=== PATIENT | male | born 1935 | race Caucasian/White ===

== ENCOUNTER 2020-11-06 10:00 | Outpatient (RCR) | payer MEDICARE, SELFPAY ==
[2016-03-15 18:31] VITALS: BMI 22.0
== END 2020-11-06 23:59 ==
LOC: IMMUN 10:00
PROVIDERS: PCP Family Medicine; Visit Provider Family Medicine
DX: Z23 Encounter for immunization (principal)
CPT/HCPCS: 0011A; 0012A; 91301

== ENCOUNTER 2025-02-04 07:31 | Emergency (ER) | payer MEDICARE, SELFPAY ==
[2025-02-04 07:32] VITALS: BP 182/85; PULSE 71; RESP 16; TEMP 37; O2SAT 100; BMI 21.9
--- NOTE | 2025-02-04 07:54 | EX.ED.DYSGE1 ---
HPI History of Present Illness Chief Complaint: Wound Check Informant: patient Onset/Context/Timing Onset: Today Context: Gradual Onset Timing: Continuous Current Severity: Mild Maximum Severity: Mild Narrative Narrative: 89-year-old male history of CAD with stent and hypertension. He is on aspirin and Plavix. He was washing his face today accidentally scrubbed off some skin on the top of his nose and his right ear and began bleeding. No other complaints. This occurred about an hour ago. Bleeding was not stopping so he came in the emergency department. Prior similar symptoms: Yes Recent Illness/Hospitalization: No [facility] Medical History Cardiac LV ejection fraction 10-20% (09/11/24) Arteriosclerotic coronary artery disease Chronic neuropathic pain Spinal stenosis of lumbar region Former tobacco use Brain aneurysm Hypertension Home Medications ?Medication ?Instructions ?Recorded ?Last Taken ?Type Handicap Parking Placard #2 ea 10/22/24 Unknown Rx aspirin 81 mg tablet,delayed 81 mg PO BREAKFAST awaiting mail 12/05/24 Unknown Rx release order RX #30 tabs atorvastatin 40 mg tablet 40 mg PO QHS awaiting mail in RX 12/05/24 Unknown Rx #30 tabs carvedilol 3.125 mg tablet 3.125 mg PO BID awaiting mail in 12/05/24 Unknown Rx RX #60 tabs clopidogrel 75 mg tablet 75 mg PO DAILY awaiting mail order 12/05/24 Unknown Rx RX #30 tabs empagliflozin 10 mg tablet 10 mg PO DAILY awaiting mail order 12/05/24 Unknown Rx (Jardiance) RX #30 tabs furosemide 40 mg tablet 40 mg PO DAILY awaiting mail order 12/05/24 Unknown Rx RX #30 tabs losartan 25 mg tablet 25 mg PO DAILY awaiting mail order 12/05/24 Unknown Rx RX #30 tabs spironolactone 25 mg tablet 12.5 mg (1/2 x 25 mg) PO DAILY 12/05/24 Unknown Rx awaiting mail order RX #15 tabs Allergy/AdvReac Type Severity Reaction Status Date / Time hydrochlorothiazide (From AdvReac Other Verified 10/18/24 10:04 Zestoretic) lisinopril (From Zestoretic) AdvReac Other Verified 10/18/24 10:04 Family History Mother Cancer Father Cancer Surgical History Stented coronary artery (09/11/24) Hx of hemorrhoidectomy Social History household members: spouse Smoking Status: Former smoker how long ago did patient quit smoking: Patient smoked 2 ppd from teen until 30 y/o then quit. alcohol intake: never substance use type: does not use caffeine: No ROS ROS ED ROS Narrative Denies recent illness. Constitutional Constitutional ED: Denies chills or fever(s) Eyes Eyes: Denies blurry vision ENT ENT ED: Denies ear pain Cardiovascular Cardiovascular: Denies chest pain Respiratory/Chest Respiratory/Chest: Denies cough or dyspnea Gastrointestinal Gastrointestinal: Denies abdominal pain Genitourinary Genitourinary ED: Denies dysuria or hematuria Musculoskeletal Musculoskeletal: Denies arthralgias Integumentary Denies abscess Neurologic Neurologic: Denies headache(s) Psychiatric Psychiatric: Denies anxiety or depression Endocrine Endocrinology: Denies cold intolerance Hematologic/Lymphatic Hematologic/Lymphatic: Denies easy bruising Allergic/Immunologic Allergic/Immunologic ED: Denies mouth swelling EXAM Physical Exam Narrative Exam Narrative: 89-year-old male sitting upright in a chair. Vital signs are stable and afebrile. Accompanied by his daughter. He is in no acute distress. Oozing from the skin on the top of the nose and his right earlobe. Pupils round reactive light. Neck nontender no lymphadenopathy. Lungs are clear equal symmetrical. Heart regular rhythm rate about 70 no murmur. Chest wall ribs nontender. Abdomen soft nontender. Moving all 4 extremities. Nontender no edema. Neurologically is awake alert. Answering questions following commands. No focal motor deficits. Const Vital Signs: 02/04/25 07:32 Temperature 98.6 F Temperature Source Oral Pulse Rate 71 Respiratory Rate 16 Blood Pressure 182/85 H Blood Pressure Mean 117 Pulse Ox 100 Oxygen Delivery Method Room Air Positive well nourished and well developed; Negative for obese, cachectic, contractures or unkempt General Appearance ED: well developed and NAD; Negative for unkempt, cachectic, contractures, cyanotic, diaphoretic or pallor Nutritional Appearance: Negative for cachectic or obese HEENT Reports moist mucous membranes Negative for trauma or tenderness Eyes PERRL and EOMs intact bilaterally Neck no lymphadenopathy, supple and no JVD Chest Wall inspection of chest normal and palpation of chest normal Resp normal respiratory effort and clear to auscultation bilaterally Effort and Inspection: Negative for retractions Auscultation: Negative for rales, rhonchi or wheezes Cardio regular rate, regular rhythm, S1 normal heart sound, S2 normal heart sound and no murmurs GI normal to inspection, nondistended, normoactive bowel sounds, non-tender, non-distended and no masses Palpation: soft; Negative for tender, guarding or rebound tenderness present Back/Spine no CVA tenderness General Back: Negative for CVA tenderness Cervical Spine: Negative for cervical spine tenderness Thoracic Spine / Upper Back: Negative for thoracic spinal tenderness Extremity normal to inspection General Extremety ED: Negative for edema or tenderness General Extremity: Negative for edema Neuro CN's II-XII intact bilaterally Sensorium / Orientation: alert; Negative for orientation impaired Motor Exam: strength 5/5 throughout Psych Appearance: Negative for unkempt Skin no rashes or lesions noted, No no wounds and skin turgor normal Skin Narrative: Skin tear of the bridge of his nose. Oozing. Small wound right lower earlobe. Currently not bleeding. General Skin Exam: Negative for pallor Lesions: No lesion noted Rashes: No rashes noted MDM MDM MDM Narrative Medical decision making narrative: 89-year-old male has a wound on his nose and right ear lobe that were bleeding due to him being on Plavix and aspirin. Otherwise exam benign. I placed Dermabond on both wounds bleeding stopped. He was instructed on wound care. Discharge Plan Triage Chief Complaint: Wound Check ED Provider: Jovany Wellington Dx/Rx/DC Orders Clinical Impression: Skin tear Instructions: ED Skin Tear (Skin Avulsion) Prescriptions: No Action (DME) Handicap Parking Placard See Rx Instructions .Route .MEDSUPPLY Qty: 2 0RF Rx Instructions: As directed atorvastatin 40 mg tablet 40 mg PO QHS Qty: 30 0RF carvedilol 3.125 mg tablet 3.125 mg PO BID Qty: 60 0RF clopidogrel 75 mg tablet 75 mg PO DAILY Qty: 30 0RF Jardiance 10 mg tablet 10 mg PO DAILY Qty: 30 0RF furosemide 40 mg tablet 40 mg PO DAILY Qty: 30 0RF losartan 25 mg tablet 25 mg PO DAILY Qty: 30 0RF spironolactone 25 mg tablet 12.5 mg PO DAILY Qty: 15 0RF aspirin 81 mg tablet,delayed release (DR/EC) 81 mg PO BREAKFAST Qty: 30 0RF Primary Care Provider: Lesley Holt Referrals: Lesley Holt, [facility] [Primary Care Provider] - As Needed Activity Restrictions/Additional Instructions: General Washes area for at least a week. Because you might pull off the clot and the glue I will restart bleeding. If it begins bleeding again just hold direct pressure for 30 minutes if unable to stop return. Print Language: Grenadian Disposition Disposition: Home, Self Care
== END 2025-02-04 08:17 | disposition home or self-care (01) ==
PROVIDERS: Emergency Provider Emergency Medicine; PCP Nurse Practitioner Family; Visit Provider Emergency Medicine
DX: S31.119A Laceration without foreign body of abdominal wall, unspecified quadrant without penetration into peritoneal cavity, initial encounter (principal); I25.10 Atherosclerotic heart disease of native coronary artery without angina pectoris; Z79.02 Long term (current) use of antithrombotics/antiplatelets; I10 Essential (primary) hypertension; Z79.82 Long term (current) use of aspirin; Z87.891 Personal history of nicotine dependence; Z95.5 Presence of coronary angioplasty implant and graft; Z79.899 Other long term (current) drug therapy; X58.XXXA Exposure to other specified factors, initial encounter; Y93.89 Activity, other specified
CPT/HCPCS: 99282

== ENCOUNTER → 2025-03-08 | Outpatient (CLI) | payer MEDICARE, SELFPAY ==
[2025-03-08 12:35] LABS: AST(SGOT) 28 U/L (<=37); Alanine Aminotransfer ALT/SGPT 31 U/L (<=46); Albumin, Serum 4.1 g/dL (3.4-4.8); Alkaline Phosphatase 90 U/L (40-129); Bilirubin, Direct 0.46 mg/dL (0.00-0.30); Cholesterol 125 mg/dL (<=200); Globulin 3.2 g/dL (2.2-4.2); High Density Lipoprotein 51 mg/dL; Low Density Lipoprotein Calc. 57 mg/dL; Protein, Total 7.3 g/dL (5.9-8.4); Total Bilirubin 1.06 mg/dL (0.00-1.30); Triglycerides 89 mg/dL; Very Low Density Lipoprotein 18 mg/dL (5-40); cholesterol:hdl ratio screen 2.48
== END | disposition home or self-care (01) ==
LOC: LAB 09:26
PROVIDERS: PCP Nurse Practitioner Family; Referring Provider Nurse Practitioner Family; Visit Provider Nurse Practitioner Family
DX: E78.00 Pure hypercholesterolemia, unspecified (principal); Z95.5 Presence of coronary angioplasty implant and graft
CPT/HCPCS: 36415; 80061; 80076

== ENCOUNTER → 2025-04-05 | Outpatient (CLI) | payer MEDICARE, SELFPAY ==
[2025-04-05 15:55] LABS: Anion Gap 12 (5-15); BUN 20 mg/dL (4-19); BUN/Creat Ratio 17.6 RATIO (10-20); Calcium,Total 9.3 mg/dL (7.6-11.0); Chloride 104 mmol/L (98-108); Creatinine, Serum 1.11 mg/dL (0.70-1.20); EST Glomerular Filtration Rate 63 (>60); Glucose 136 mg/dL (70-99); Potassium 4.3 mmol/L (3.3-5.1); Sodium Level 139 mmol/L (133-145)
--- OUTSIDE RECORDS SUMMARY | 2025-04-05 18:30 | XMS RPT_ITS | CCD ---
Author Organization [facility] Care Team Providers Care [employer] Name Role Phone Healthcare, [facility] Primary Care Provider Unavailable Santi ROMEO, Dr. Yen Referring Provider Roof DISTRICT LEADER-C, Faheme Villavicencio Attending Provider [phone] Jonathon DISTRICT LEADER-C, Cornucopia Primary Care Provider Dr. Jovany Wellington MD Emergency Provider Jonathon DISTRICT LEADER-C, [place] Primary Care Provider [phone] Amish ROMEO, Dr. Manzo Attending Provider [phone] Roof DISTRICT LEADER-C, Faheem Villavicencio Attending Provider [phone] Roof [employer] LEADER-C, Faheem Villavicencio Referring Provider Giacomo, Yogi Attending Unavailable Farshad Hancock Primary Care Unavailable Giacomo, Yogi Admitting Unavailable Giacomo, Yogi Referring Unavailable Farshad Hancock Primary Care Unavailable Nagajothi, Nagapradee Consulting Unavailabl e Benjy Best Attending Unavailable Giacomo, Yogi Consulting Unavailable Benjy Best Consulting Unavailable Tavon Peterson Attending Unavailable Jonathon, Lesley Primary Care Unavailable Roof DISTRICT LEADERFaheem Referring Unavailable Roof DISTRICT LEADER, Faheem Villavicencio Attending Unavailable Jonathon, Lesley Primary Care Unavailable Jovany Wellington Attending Unavailable Jonathon, Lesley Primary Care Unavailable Jonathon, Lesley Attending Unavailable Giacomo, Yogi Consulting Unavailable Giacomo, Yogi Admitting Unavailable Giacomo, Yogi Referring Unavailable Benjy Best Attending Unavailable Bursdavid, Farshad Primary Care Unavailable Nagajothi, Nagapradee Consulting Unavailabl e Giacomo, Yogi Attending Unavailable Giacomo, Yogi Consulting Unavailable Giacomo, Yogi Admitting Unavailable Giacomo, Yogi Referring Unavailable Farshad Hancock Primary Care Unavailable Natalie Dubose Attending Unavailable Yogi Gooden Attending Unavailable Yogi Gooden Referring Unavailable Farshad Hancock Primary Care Unavailable Lesley Holt Primary Care Unavailable Tavon Peterson Attending Unavailable Lesley Holt Referring Unavailable Roof Faheem LANDAVERDE Attending Unavailable Farshad Hancock Referring Unavailable JonathonLesley gallegos Primary Care Unavailable Jonathon DISTRICT LEADER-C, Lesley Referring Provider Kristen ROMEO, Dr. Montes De Oca Attending Provider Unavailable Unavailable Unavailable Allergies Allergy Classification Reported Allergen(s) Allergy Type Date of Onset Reaction(s) Facility (4 sources) hydroCHLOROthiazide Drug Allergy [address] [facility] (5 sources) Lisinopril Drug Allergy [address] [facility] (1 source) hydroCHLOROthiazide Drug Allergy [address] [facility] (1 source) Lisinopril Drug Allergy [address] [facility] Medications Current Medications Medication Drug Class(es) Dates Sig (Normalized) Sig (Original) atenolol 50 mg oral tablet (5 sources) beta-Adrenergic Bc Start: 04-05-2014 take 1 tablet by mouth once daily atenolol (TENORMIN) 50 mg tablet Indications: Essential hypertension Take 1 tablet by mouth once daily. 90 tablet 3 11/19/2020 Active Start: 04-05-2014 End: 09-13-2024 Atenolol 50 MG tablet Discon tinued 1 {tbl} PO DAILY April 05, 2014 12:00am September 13, 2024 9:41am On Hold: not taking clopidogrel 75 mg oral tablet (13 sources) P2Y12 Platelet Inhibitor Start: 09-13-2024 End: 03-19-2025 take 1 tablet by mouth once daily Clopidogrel 75 mg tablet Active 75 mg PO DAILY 90 March 19, 2025 1:27pm finasteride 5 mg oral tablet (1 source) 5-alpha Reductase Inhibitor Start: 11-23-2019 take 1 tablet by mouth once daily finasteride (PROSCAR) 5 mg tablet Indications: Benign prostatic hyperplasia with urinary obstruction , Elevated prostate specific antigen (PSA) Take 1 tablet by mouth once daily. 90 tablet 3 11/23/2019 Active Handicap Parking Placard (6 sources) Start: 10-22-2024 Handicap Parki ng Placard Active 0 .Route .MEDSUPPLY 2 October 22, 2024 10:00am As directed Start: 10-22-2024 End: 10-22-2024 Handicap Parking Placard Dis continued 0 .Route .MEDSUPPLY 2 October 22, 2024 1:00am October 22, 2024 10:00am As directed Multivit-Min/Fa/Lycopene/Lut (Centrum Silver Tablet) 1 EACH Tablet (1 source) Start: 04-05-2014 take 1 tablet by mouth once daily Multivit-Min/Fa/Lycopene/Lut (Centrum Silver Tablet) 1 EACH Tablet Active 1 EACH PO DAILY April 05, 2014 4:13pm Qygaabsfbsohf-Pbcgtppf-Jlipn n (CENTRUM SILVER) Tab (1 source) Start: 03-15-2013 take 1 tablet by mouth once daily Ekldgirntzdsn-Ttsrqvge-Jlnice (CENTRUM SILVER) Tab Take 1 tablet by mouth once daily. 1 tablet 0 03/15/2013 Active tamsulosin hydrochloride 0.4 mg oral capsule (1 source) alpha-Ad renergic Bc Start: 03-19-2025 Tamsulosin 0.4 mg capsule Active mg PO March 19, 2025 12:00am Completed/Discontinued Medications Medication Drug Class(es) Dates Sig (Normalized) Sig (Original) acetaminophen 325 mg / HYDROcodone bitartrate 5 mg oral tablet (4 sources) Opioid Agonist Start: 6 End: 4 Hydrocodone-Acetam inophen 1 TABLET tablet Discontinued 1 - 2 {tbl} PO EVERY 4 HOURS NEEDED as needed for Pain March 15, 2016 12:00am September 13, 2024 9:42am amLODIPine 2.5 mg oral tablet (4 sources) Dihydropyridine Calcium Channel Bc Start: 4 End: 4 Amlodipine 2.5 MG tablet Discontinued 1 {tbl} PO DAILY April 05, 2014 12:00am September 13, 2024 9:41am On Hold: Ordered aspirin 81 mg delayed release oral tablet (9 sources) Platelet Aggregation Inhibitor, Nonsteroidal Anti-inflammatory Drug Start: 4 End: 5 take 1 tablet by mouth at breakfast Aspirin 81 mg tablet,delayed release (DR/EC) Discontinued 81 mg PO WITH BREAKFAST November 30, 2024 4:37pm December 05, 2024 4:48pm atorvastatin 40 mg oral tablet (12 sources) HMG-CoA Reductase Inhibitor Start: 4 End: 5 take 1 tablet by mouth at bedtime Atorvastatin 40 mg tablet Discontinued 40 mg PO AT BEDTIME November 30, 2024 4:38pm December 05, 2024 4:45pm carvedilol 3.125 mg oral tablet (12 sources) alpha-Adrenergic Bc, beta-Adrenergic Bc Start: 4 End: 5 take 1 tablet by mouth twice daily Carvedilol 3.125 mg tablet Discontinued 3.125 mg PO TWICE A DAY November 30, 2024 4:38pm December 05, 2024 4:45pm cholecalciferol 0.025 mg oral capsule (5 sources) Vitamin D Start: 9 End: 4 take 1 capsule by mouth once daily Cholecalciferol (Vitamin D3) (Vitamin D3) 1,000 UNIT capsule Discontinued 1000 U PO DAILY July 14, 2014 12:00am September 13, 2024 9:44am empagliflozin 10 mg oral tablet (14 sources) Sodium-Glucose Cotransporter 2 Inhibitor Start: 4 End: 5 take 1 tablet by mouth once daily Empagliflozin (Jardiance) 10 mg tablet Discontinued 10 mg PO DAILY December 05, 2024 4:45pm February 27, 2025 3:47pm furosemide 40 mg oral tablet (12 sources) Loop Diuretic Start: 4 End: 5 take 1 tablet by mouth once daily Furosemide 40 mg tablet Discontinued 40 mg PO DAILY December 05, 2024 4:46pm March 19, 2025 1:03pm hydroCHLOROthiazide 25 mg / losartan potassium 100 mg oral tablet (5 sources) Thiazide Diuretic, Angiotensin 2 Receptor Bc Start: 4 End: 4 Losartan-Hydrochlo rothiazide 1 EACH tablet Discontinued 1 {tbl} PO DAILY April 05, 2014 12:00am September 13, 2024 9:44am On Hold: not taking losartan potassium 25 mg oral tablet (14 sources) Angiotensin 2 Receptor Bc Start: 4 End: 5 take 1 tablet by mouth once daily Losartan 25 mg tablet Discontinued 25 mg PO DAILY December 05, 2024 4:46pm March 13, 2025 10:03am Pdtokyzl-Rcx-Ml-Lycopen -Lutein (Centrum Silver) 1 EACH tablet (3 sources) Start: 4 End: 4 take 1 tablet by mouth once daily Txcopzxd-Dzp-Gp-Ly copen-Lutein (Centrum Silver) 1 EACH tablet Discontinued 1 NMA PO DAILY April 05, 2014 12:00am September 13, 2024 9:44am On Hold: not taking spironolactone 25 mg oral tablet (14 sources) Aldosterone Antagonist Start: 4 End: 5 Spironolactone 25 mg tablet Discontinued 12.5 mg PO DAILY December 05, 2024 4:46pm March 13, 2025 10:04am Problems Active Problems Problem Classification Problem Date Documented Date Episodic/Chronic Acute cerebrovascular disease (1 source) Hemorrhage into subarachnoid space of neuraxis; Translations: [Nontraumatic subarachnoid hemorrhage, unspecified] 04-26-2024 Chronic Acute myocardial infarction (5 sources) Myocardial infarction; Translations: [ST elevation (STEMI) myocardial infarction of unspecified site] Onset: 09-11-2024 09-12-2024 Chronic Coronary atherosclerosis and other heart disease (8 sources) Coronary arteriosclerosis; Translations: [Atherosclerotic heart disease of rincon coronary artery without angina pectoris] Onset: 09-26-2024 09-12-2024 Chronic Disorders of lipid metabolism (8 sources) Hyperlipidemia; Translations: [Other hyperlipidemia] Onset: 09-26-2024 05-17-2018 Chronic Essential hypertension (7 sources) Essential hypertension; Translations: [Essential (primary) hypertension] Onset: 07-12-2006 10-23-2015 Chronic Hemorrhoids (1 source) Hemorrhoids; Translations: [Unspecified hemorrhoids] 04-26-2024 Episodic Hyperplasia of prostate (2 sources) Benign prostatic hypertrophy with outflow obstruction; Translations: [Benign prostatic hyperplasia with lower urinary tract symptoms] Onset: 03-15-2012 Resolved: 05-22-2016 11-17-2017 Chronic Hypertension with complications and secondary hypertension (1 source) Hypertensive heart disease with heart failure; Translations: [Hypertensive heart disease with heart failure] Onset: 03-22-2025 Chronic Open wounds of head; neck; and trunk (4 sources) Tear of skin; Translations: [Open wound(s) (multiple) of unspecified site(s), without mention of complication] Onset: 02-07-2025 02-04-2025 Episodic Other and ill-defined heart disease (3 sources) Left ventricular systolic dysfunction; Translations: [Other ill-defined heart diseases] 09-11-2024 Chronic Other and ill-defined heart disease (2 sources) Other ill-defined heart diseases; Translations: [Other ill-defined heart diseases] Onset: 09-26-2024 Chronic Other and unspecified benign neoplasm (1 source) History of polyp of colon; Translations: [Personal history of colonic polyps] 04-26-2024 Episodic Other nervous system disorders (4 sources) Peripheral nerve disease ; Translations: [Polyneuropathy, unspecified] 04-06-2014 Chronic Residual codes; unclassified (1 source) Family history of malignant neoplasm of gastrointestinal tract; Translations: [Family history of malignant neoplasm of digestive organs] 04-26-2024 Episodic Past or Other Problems Problem Classification Problem Date Documented Da te Episodic/Chronic Coronary atherosclerosis and other heart disease (5 sources) Stented coronary artery; Translations: [Presence of coronary angioplasty implant and graft] Onset: 09-11-2024 09-12-2024 Episodic Comment on above: Thrombectomy and YASHIRA to pD1 using Luis Menard 2.5 X 15 mm stent Genitourinary symptoms and ill-defined conditions (4 sources) Blood in urine; Translations: [Hematuria, unspecified] Onset: 09-26-2024 09-12-2024 Episodic Nonspecific chest pain (5 sources) Chest pain; Translations: [Chest pain, unspecified] Onset: 09-26-2024 09-11-2024 Episodic Other screening for suspected conditions (not mental disorders or infectious disease) (5 sources) Raised prostate specific antigen; Translations: [Elevated prostate specific antigen [PSA]] Onset: 05-22-2016 05-22-2016 Episodic Spondylosis; intervertebral disc disorders; other back problems (2 sources) Spinal stenosis of lumbar region; Translations: [Spinal stenosis, lumbar region with neurogenic claudication] Onset: 04-13-2016 Resolved: 05-22-2016 05-22-2016 Episodic Results Test Name Value Interpretation Reference Range Facility Cardiology Visit Reporton Cardiology Visit Report [facility] [address] [place] [address] OFFICE VISIT Date of Service: 03/19/25 MR#: [id number] Acct: [id number] Name: MARIO LORENZO Rep #: [id number] : 1935 Provider: Dr. Tavon price MD Age/Sex: 89/M Location: [facility] Status: Signed HPI HPI History of Present Illness Details: Patient is a very pleasant 89-year-old white male that comes in today with his daughter. He is here for monitoring his cardiovascular status. 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 He underwent stenting with a drug-eluting stent at that time he had no other significant disease in his coronary anatomy. However, the patient's LV ejection fraction was estimated at 20% which showed global LV systolic dysfunction way out of proportion of his single-vessel branch disease. The patient has been placed on LV recovery medical therapy and is tolerating it without incident. He reports his blood pressure in his home environment 120/70 his heart rate is in the 70s. The patient does have a history of hypertension and hyperlipidemia his last LDL March 08, 2025 was 57. Patient's original complaint was achiness in his chest and arms he has had no recurrence of this symptom. The patient's activities are limited by spinal stenosis he walks with a cane and has some difficulty getting around but he is able to go out to eat supper at restaurants. The patient denies any PND orthopnea denies any lower extremity edema. He denies any change in his exercise tolerance. Patient reports that he feels very well and is inclined not to pursue any further testing or evaluation at this time. Intake Vital Signs 02/04/25 07:32 03/19/25 13:00 Height 5 ft 4.96 in 5 ft 4.96 in Weight: 130 lb BMI 21.7 BP 174/87 H Blood Pressure Location Lt brachial Position Sitting Respiration 18 Pulse 74 Pulse Source Monitor Pulse Oximetry (%) 97 Oxygen Delivery Method room air Comment weight per pt report Intake Visit Reasons: 6 M FU Otm Consultant Required: No Accompanied by: Daughter Is patient in pain?: No Allergies hydrochlorothiazide (From Zestoretic) Adverse Reaction (Verified 03/19/25 13:01) Other lisinopril (From Zestoretic) Adverse Reaction (Verified 03/19/25 13:01) Other Medications ???Medication ???Instructions ???Recorded ???Confirmed ???Type Handicap Parking Placard #2 ea 10/22/24 Rx aspirin 81 mg tablet,delayed 81 mg PO BREAKFAST awaiting mail 0 12/05/24 03/19/25 Rx release order RX #30 tabs atorvastatin 40 mg tablet 40 mg PO QHS awaiting mail in RX 0 12/05/24 03/19/25 Rx #30 tabs carvedilol 3.125 mg tablet 3.125 mg PO BID awaiting mail in 0 12/05/24 03/19/25 Rx RX #60 tabs empagliflozin 10 mg tablet 10 mg PO DAILY #90 tabs 02/27/25 0 03/19/25 Rx (Jardiance) losartan 25 mg tablet 25 mg PO DAILY #90 tabs 03/13/25 0 03/19/25 Rx spironolactone 25 mg tablet 12.5 mg (1/2 x 25 mg) PO DAILY #45 03/13/25 03/19/25 Rx tabs clopidogrel 75 mg tablet 75 mg PO DAILY awaiting mail order 03/19/25 03/19/25 Rx RX #90 tabs tamsulosin 0.4 mg capsule mg PO 03/19/25 03/19/25 History Ejection fraction %: 20 Have you fallen in the past year?: No PFSH Medical History Cardiac LV ejection fraction 10-20% (09/11/24) Arteriosclerotic coronary artery disease Chronic neuropathic pain Spinal stenosis of lumbar region Former tobacco use Brain aneurysm Hypertension Surgical History Stented coronary artery (09/11/24) Hx of hemorrhoidectomy Family History Mother Cancer Father Cancer Social History household members: spouse Smoking Status: Former smoker how long ago did patient quit smoking: Patient smoked 2 ppd from teen until 30 y/o then quit. alcohol intake: never substance use type: does not use caffeine: No ROS Const Const: Negative for fatigue or weakness ENT ENT: Negative for dizziness or balance problems Cardio Chest Pain: No Palpitations: No Edema: None Muscle aches with walking: None Resp Respiratory: Negative for SOB with activity, SOB at rest or SOB orthopnea SOB lying down GI GI: Negative nausea, vomiting or heartburn Musc Musc: Negative for muscle weakness or balance problems Neuro Neuro: Negative for dizziness, lightheadedness, near syncope, syncope or weakness Endo Endo: Negative for fatigue Cardiology Exam Const Appearance: cooperative, comfortable and no acute distress Nutritional Appearance: thin Head Head: normal to inspection Eyes General: appearance normal, bot (more content not included)... Normal [facility] Bilirubin directOrdered By: Faheem Huynh on 03-08-2025 Bilirubin.direct [Mass/Vol] 0.46 mg/dL High 0.00-0.[address] [facility] Bilirubin, totalOrdered By: Faheem Huynh on 03-08-2025 Bilirubin [Mass/Vol] 1.06 mg/dL 0.00-1.30 [facility] Calculated very low density lipoprotein (VLDL) cholesterol measurementOrdered By: Faheem Huynh on 03-08-2025 Calculated very low density lipoprotein (VLDL) cholesterol measurement 18 mg/dL 5-[address] [facility] LDL calc ser/plasOrdered By: Faheem Huynh on 03-08-2025 Cholesterol in LDL [Mass/Vol] 57 mg/dL [facility] Comment on above: Srtonzpxpe=319-351 m g/dL & Higher Bmzm=430 mg/dL or greater Laboratory - Chemistry and C hemistry - challengeOrdered By: Faheem Huynh on 03-08-2025 AST [Catalytic activity/Vol] 28 U/L <[address] [facility] Lipid Profileon 03-08-2025 CHOL:HDL 2.[address] [facility] Comment on above: Performed By: #### L 500.2850, L500.3400 #### [facility] [address] [place], [place], [id number] Cholesterol [Mass/Vol] 125 mg/dL Normal <=200 [facility] Comment on above: Result Comment: Chol esterol level, Desirable <200 mg/dL Borderline high cholesterol 200-239 mg/dL High cholesterol >=240 mg/dL Recommendations of the NCEP Adult Treatment Panel for the following risk-cutoff thresholds for the [place] population. Performed By: #### L 500.4100, L500.3400 #### [facility] [address] [place], [address] Cholesterol in HDL [Mass/Vol] 51 mg/dL Normal [facility] Comment on above: Result Comment: Kristin onal Cholesterol Education Program (NCEP) guidelines: <40 mg/dL: Low HDL-cholesterol (major risk factor for CHD) >= 60 mg/dL: High HDL-cholesterol (negative risk factor for CHD) HDL-cholesterol is affected by a number of factors, e.g. smoking, exercise, hormones, sex and age. Performed By: #### L 500.4100, L500.3400 #### [facility] [address] [place], [address] Cholesterol in LDL [Mass/Vol] 57 mg/dL Normal [facility] Comment on above: Result Comment: Bord uetifu=199-323 mg/dL Higher Jyie=250 mg/dL or greater Performed By: #### L 500.4100, L500.3400 #### [facility] [address] [place], [address] Cholesterol in VLDL [Mass/Vol] 18 mg/dL Normal 5-[address] [facility] Comment on above: Performed By: #### L 500.4100, L500.3400 #### [facility] [address] [place], [address] Triglyceride [Mass/Vol] 89 mg/dL Normal [facility] Comment on above: Result Comment: The drugs N-Acetylcysteine and Metamizole may falsely depress this assay. Normal range: <150 mg/dL Borderline High: 150-199 mg/dL High: 200-499 mg/dL Very High: >500 mg/dL Performed By: #### L 500.4100, L500.3400 #### [facility] [address] [place], [address] Liver Profileon 03-08-2025 Albumin [Mass/Vol] 4.1 g/dL Normal 3.4-4.8 [facility] Comment on above: Performed By: #### L 500.4100, L500.3400 #### [facility] [address] [place], [address] ALK PHOS 90 U/L Normal 40-[address] [facility] Comment on above: Performed By: #### L 500.4100, L500.3400 #### [facility] [address] [place], [address] ALT [Catalytic activity/Vol] 31 U/L Normal <=[address] [facility] Comment on above: Performed By: #### L 500.4100, L500.3400 #### [facility] [address] [place], [address] AST [Catalytic activity/Vol] 28 U/L Normal <=[address] [facility] Comment on above: Performed By: #### L 500.4100, L500.3400 #### [facility] [address] [place], [address] Bilirubin [Mass/Vol] 1.06 mg/dL Normal 0.00-1.30 [facility] Comment on above: Performed By: #### L 500.4100, L500.3400 #### [facility] [address] [place], [address] Bilirubin.direct [Mass/Vol] 0.46 mg/dL High 0.00-0.[address] [facility] Comment on above: Performed By: #### L 500.4100, L500.3400 #### [facility] [address] [place], [address] Globulin (S) [Mass/Vol] 3.2 g/dL Normal 2.2-4.[address] [facility] Comment on above: Performed By: #### L 500.4100, L500.3400 #### [facility] [address] [place], [place], [id number] T PROT 7.3 g/dL Normal 5.9-8.[address] [facility] Comment on above: Performed By: #### L 500.4100, L500.3400 #### [facility] [address] [place], [place], [address] Screening total cholesterol/ high density lipoprotein (HDL) cholesterol ratioOrdered By: Faheem Huynh on 03-08-2025 Cholesterol.total/Chol esterol in HDL [Mass ratio] 2.48 {ratio} [facility] Serum globulin measurementOr dered By: Faheem Huynh on 03-08-2025 Globulin (S) [Mass/Vol] 3.2 g/dL 2.2-4.[address] [facility] Serum or plasma alanine pimentel otransferase (ALT) measurementOrdered By: Faheem Huynh on 03-08-2025 ALT [Catalytic activity/Vol] 31 U/L <[address] [facility] Serum or plasma albumin hiral urement (mass/volume)Ordered By: Faheem Huynh on 03-08-2025 Albumin [Mass/Vol] 4.1 g/dL 3.4-4.8 [facility] Serum or plasma alkaline china sphatase measurementOrdered By: Faheem Huynh on 03-08-2025 ALP [Catalytic activity/Vol] 90 U/L 40-[address] [facility] Serum or plasma cholesterol in HDL measurement (mass/volume)Ordered By: Faheem Huynh on 03-08-2025 Cholesterol in HDL [Mass/Vol] 51 mg/dL >[address] [facility] Comment on above: National Cholesterol Education Program (NCEP) guidelines:<40 mg/dL: Low HDL-cholesterol (major risk factor for CHD)>= 60 mg/dL: High HDL-cholesterol (negative risk factor for CHD)HDL-cholesterol is affected by a number of factors, e.g. smoking, exercise, hormones, sex and age. Serum or plasma cholesterol measurement (mass/volume)Ordered By: Faheem Huynh on 03-08-2025 Cholesterol [Mass/Vol] 125 mg/dL <201 [facility] Comment on above: Cholesterol level, D esirable <200 mg/dLBorderline high cholesterol 200-239 mg/dLHigh cholesterol >=240 mg/dLRecommendations of the NCEP Adult Treatment Panel for the following risk-cutoff thresholds for the [place] population. Total proteinOrdered By: Claude Huynh on 03-08-2025 Protein [Mass/Vol] 7.3 g/dL 5.9-8.4 [facility] Triglycerides measurementOrd ered By: Faheem Lino on 03-08-2025 Triglyceride [Mass/Vol] 89 mg/dL <[address] [facility] Comment on above: The drugs N-Acetylcy steine and Metamizole may falsely depress this assay. Normal range: <150 mg/dLBorderline High: 150-199 mg/dLHigh: 200-499 mg/dLVery High: >500 mg/dL Emergency Department Summary on 02-04-2025 Emergency Department Summary [facility] Medical Records Department [address] [place] [address] Emergency Department Summary 02/04/25 MR#: [id number] Acct: [id number] Name: MAROI LORENZO Rep #: [id number] : 1935 89 From: Jovany Wellington MD PCP: SHANIQUA Zheng Status:REG ER Location: ED HPI History of Present Illness Chief Complaint: Wound Check Informant: patient Onset/Context/Timing Onset: Today Context: Gradual Onset Timing: Continuous Current Severity: Mild Maximum Severity: Mild Narrative Narrative: 89-year-old male history of CAD with stent and hypertension. He is on aspirin and Plavix. He was washing his face today accidentally scrubbed off some skin on the top of his nose and his right ear and began bleeding. No other complaints. This occurred about an hour ago. Bleeding was not stopping so he came in the emergency department. Prior similar symptoms: Yes Recent Illness/Hospitalizat ion: No PFSH PFSH Medical History Cardiac LV ejection fraction 10-20% (09/11/24) Arteriosclerotic coronary artery disease Chronic neuropathic pain Spinal stenosis of lumbar region Former tobacco use Brain aneurysm Hypertension Home Medications ???Medication ???Instructions ???Recorded ???Last Taken ???Type Handicap Parking Placard #2 ea 10/22/24 Unknown Rx aspirin 81 mg tablet,delayed 81 mg PO BREAKFAST awaiting mail 0 12/05/24 Unknown Rx release order RX #30 tabs atorvastatin 40 mg tablet 40 mg PO QHS awaiting mail in RX 0 12/05/24 Unknown Rx #30 tabs carvedilol 3.125 mg tablet 3.125 mg PO BID awaiting mail in 0 12/05/24 Unknown Rx RX #60 tabs clopidogrel 75 mg tablet 75 mg PO DAILY awaiting mail order 12/05/24 Unknown Rx RX #30 tabs empagliflozin 10 mg tablet 10 mg PO DAILY awaiting mail order 12/05/24 Unknown Rx (Jardiance) RX #30 tabs furosemide 40 mg tablet 40 mg PO DAILY awaiting mail order 12/05/24 Unknown Rx RX #30 tabs losartan 25 mg tablet 25 mg PO DAILY awaiting mail order 12/05/24 Unknown Rx RX #30 tabs spironolactone 25 mg tablet 12.5 mg (1/2 x 25 mg) PO DAILY Unknown Rx awaiting mail order RX #15 tabs Allergy/AdvReac Type Severity Reaction Status Date / Time hydrochlorothiazide (From AdvReac Other Verified 10/18/24 10:04 Zestoretic) lisinopril (From Zestoretic) AdvReac Other Verified 10/18/24 10:04 Family History Mother Cancer Father Cancer Surgical History Stented coronary artery (09/11/24) Hx of hemorrhoidectomy Social History household members: spouse Smoking Status: Former smoker how long ago did patient quit smoking: Patient smoked 2 ppd from teen until 30 y/o then quit. alcohol intake: never substance use type: does not use caffeine: No ROS ROS ED ROS Narrative Denies recent illness. Constitutional Constitutional ED: Denies chills or fever(s) Eyes Eyes: Denies blurry vision ENT ENT ED: Denies ear pain Cardiovascular Cardiovascular: Denies chest pain Respiratory/Chest Respiratory/Chest: Denies cough or dyspnea Gastrointestinal Gastrointestinal: Denies abdominal pain Genitourinary Genitourinary ED: Denies dysuria or hematuria Musculoskeletal Musculoskeletal: Denies arthralgias Integumentary Denies abscess Neurologic Neurologic: Denies headache(s) Psychiatric Psychiatric: Denies anxiety or depression Endocrine Endocrinology: Denies cold intolerance Hematologic/Lymphati c Hematologic/Lymphati c: Denies easy bruising Allergic/Immunologic Allergic/Immunologic ED: Denies mouth swelling EXAM Physical Exam Narrative Exam Narrative: 89-year-old male sitting upright in a chair. Vital signs are stable and afebrile. Accompanied by his daughter. He is in no acute distress. Oozing from the skin on the top of the nose and his right earlobe. Pupils round reactive light. Neck nontender no lymphadenopathy. Lungs are clear equal symmetrical. Heart regular rhythm rate about 70 no murmur. Chest wall ribs nontender. Abdomen soft nontender. Moving all 4 extremities. Nontender no edema. Neurologically is awake alert. Answering questions following commands. No focal motor deficits. Const Vital Signs: 02/04/25 07:32 Temperature 98.6 F Temperature Source Oral Pulse Rate 71 Respiratory Rate 16 Blood Pressure 182/85 H Blood Pressure Mean 117 Pulse Ox 100 Oxygen Delivery Method Room Air Positive well nourished and well developed; Negative for obese, cachectic, contractures or unkempt General Appearance ED: well developed and NAD; Negative for unkempt, cachectic, contractures, cyanotic, diaphoretic or pallo (more content not included)... Normal [facility] Cardiology Visit Reporton Cardiology Visit Report [facility] [address] [place] [address] OFFICE VISIT Date of Service: 10/18/24 MR#: [id number] Acct: [id number] Name: MARIO LORENZO Fatemeh Rep #: [id number] : 1935 Provider: SHANIQUA grayson Age/Sex: 88/M Location: [facility] Status: Signed HPI HPI History of Present Illness Details: This is a 88-year-old male who presents to the office today for a posthospital follow-up. He was evaluated [facility] in August [address] elevated myocardial infarction. He was noted to have a totally occluded proximal first diagonal branch. He proceeded with successful intervention with drug-eluting stent. LAD showed mild luminal irregularities, LCx showed minimal luminal regulars, and RCA showed mild disease. Echocardiogram on 09/12/2024 showed an ejection fraction of 20%. His reduced ejection fraction is thought to be out of proportion to his coronary artery disease. He was discharged on aspirin, atorvastatin, carvedilol, Plavix, Jardiance, Lasix, losartan, and spironolactone. He also has a past medical history of hypertension, previous tobacco abuse, and brain aneurysm. He denies chest, arm, jaw, or neck discomfort. He denies palpitations. He denies bilateral lower extremity edema. He denies claudication. He denies shortness of breath with activity, shortness of breath at rest, orthopnea, or PND. He denies chronic cough. He denies significant, sudden weight gain. He denies lightheadedness, dizziness, near-syncope, or syncope. He denies blood in urine, blood in stool, or epistaxis. He denies fever with chills. He denies myalgia. He denies fatigue. His exercise level has remained stable. Intake Vital Signs 09/12/24 14:10 10/18/24 09:54 Height 5 ft 5 in 5 ft 5 in Weight: 132 lb BMI 21.9 BP 155/84 H Blood Pressure Location Lt brachial Position Sitting Respiration 16 Pulse 80 Pulse Source NIBP Intake Visit Reasons: S/P [facility] 09/13 Otm Consultant Required: No Is patient in pain?: No Allergies hydrochlorothiazide (From Zestoretic) Adverse Reaction (Verified 10/18/24 10:04) Other lisinopril (From Zestoretic) Adverse Reaction (Verified 10/18/24 10:04) Other Medications ???Medication ???Instructions ???Recorded ???Confirmed ???Type aspirin 81 mg tablet,delayed 81 mg PO BREAKFAST 30 days #30 tabs 09/13/24 10/18/24 Rx release atorvastatin 40 mg tablet 40 mg PO QHS 90 days #90 tabs 10/18/24 10/18/24 Rx carvedilol 3.125 mg tablet 3.125 mg PO BID 90 days #180 tabs 10/18/24 10/18/24 Rx clopidogrel 75 mg tablet 75 mg PO DAILY 90 days #90 tabs 10/18/24 10/18/24 Rx empagliflozin 10 mg tablet 10 mg PO DAILY 90 days #90 tabs 10/18/24 10/18/24 Rx (Jardiance) furosemide 40 mg tablet 40 mg PO DAILY 90 days #90 tabs 10/18/24 10/18/24 Rx losartan 25 mg tablet 25 mg PO DAILY 90 days #90 tabs 10/18/24 10/18/24 Rx spironolactone 25 mg tablet 12.5 mg (1/2 x 25 mg) PO DAILY 90 10/18/24 10/18/24 Rx days #45 tabs Ejection fraction %: 20 Have you fallen in the past year?: No PFSH Medical History Cardiac LV ejection fraction 10-20% (09/11/24) Arteriosclerotic coronary artery disease Chronic neuropathic pain Spinal stenosis of lumbar region Former tobacco use Brain aneurysm Hypertension Surgical History Stented coronary artery (09/11/24) Hx of hemorrhoidectomy Family History Mother Cancer Father Cancer Social History household members: spouse Smoking Status: Former smoker how long ago did patient quit smoking: Patient smoked 2 ppd from teen until 30 y/o then quit. alcohol intake: never substance use type: does not use caffeine: No ROS Const Const: Positive for other (Feels well); Negative for fatigue or weakness Eyes Eyes: Negative for change in vision ENT ENT: Negative for dizziness or balance problems Cardio Chest Pain: No Palpitations: No Edema: None Muscle aches with walking: None Resp Respiratory: Negative for SOB with activity, SOB at rest or SOB orthopnea SOB lying down GI GI: Negative nausea or heartburn : Negative for hematuria or frequent nighttime urination/ nocturia Musc Musc: Negative for balance problems Skin Skin: Negative non-healing lesions or rash Neuro Neuro: Negative for dizziness, lightheadedness, near syncope, syncope or weakness Endo Endo: Negative for fatigue Allergy Allergy/Immunology: Negative for rash Cardiology Exam Const Appearance: cooperative, healthy appearing, comfortable and no acute distress Nutritional Appearance: average body habitus and well nourished Orientation: alert, awake and oriented x3 Head Head: n (more content not included)... Normal [facility] Basic Metabolic Profile (BMP )on 09-13-2024 BUN/CRE 25.4 RATIO High 10-[address] [facility] Comment on above: Performed By: #### L 100.0100, L500.2500 #### [facility] [address] [place], [address] CA,Total 8.4 mg/dL Low 8.5-10.[address] [facility] Comment on above: Performed By: #### L 100.0100, L500.2500 #### [facility] [address] [place], [address] Chloride [Moles/Vol] 110 mmol/L High 98-107 [facility] Comment on above: Performed By: #### L 100.0100, L500.2500 #### [facility] [address] [place], [address] CO2 [Moles/Vol] 22.0 mmol/L Normal 21.0-32.[address] [facility] Comment on above: Performed By: #### L 100.0100, L500.2500 #### [facility] [address] [place], [address] Creatinine [Mass/Vol] 1.30 mg/dL Normal 0.70-1.30 [facility] Comment on above: Result Comment: The validity of the calculated GFR GFRAA in patients over 70 years has not been determined. Clinical correlation is essential. Performed By: #### L 100.0100, L500.2500 #### [facility] [address] [place], [address] ECRCL 32.22 ml/min Normal [facility] Comment on above: Performed By: #### L 100.0100, L500.2500 #### [facility] [address] [place], [address] EST GFR - AA 67 mL/min Normal >[address] [facility] Comment on above: Result Comment: Afri can [place] GFR Calc Performed By: #### L 100.0100, L500.2500 #### [facility] [address] [place], [address] GAP 7 Normal 5-[address] [facility] Comment on above: Performed By: #### L 100.0100, L500.2500 #### [facility] [address] [place], [address] GFR/1.73 sq M.predicted among non-blacks MDRD (S/P/Bld) [Vol rate/Area] 55 mL/min/{1.73_m2} Low >[address] [facility] Comment on above: Result Comment: Non- GFR Calc Performed By: #### L 100.0100, L500.2500 #### [facility] [address] [place], [address] Glucose [Mass/Vol] 108 mg/dL High 74-106 [facility] Comment on above: Result Comment: Fast ing Glucose result from 100 to 125 mg/dL suggests IMPAIRED HOMEOSTASIS per A.D.A. criteria. Performed By: #### L 100.0100, L500.2500 #### [facility] [address] [place], [address] Potassium [Moles/Vol] 3.9 mmol/L Normal 3.5-5.1 [facility] Comment on above: Performed By: #### L 100.0100, L500.2500 #### [facility] [address] [place], [address] Sodium [Moles/Vol] 139 mmol/L Normal 136-145 [facility] Comment on above: Performed By: #### L 100.0100, L500.2500 #### [facility] [address] [place], [address] Urea nitrogen [Mass/Vol] 33 mg/dL High 7-[address] [facility] Comment on above: Performed By: #### L 100.0100, L500.2500 #### [facility] [address] [place], [address] CBC W/Diff, Automatedon 11-2 Absolute Lymph 2.11 X10 3/uL Normal 0.83-4.[address] [facility] Comment on above: Performed By: #### L 100.0100, L500.2500 #### [facility] [address] [place], [address] Absolute Neut 6.3 X10 3/uL Normal 2.0-7.[address] [facility] Comment on above: Performed By: #### L 100.0100, L500.2500 #### [facility] [address] [place], [address] Basophils/100 WBC (Bld) 0.9 % Normal 0-[address] [facility] Comment on above: Performed By: #### L 100.0100, L500.2500 #### [facility] [address] [place], [address] Eosinophils/100 WBC (Bld) 2.2 % Normal 0-[address] [facility] Comment on above: Performed By: #### L 100.0100, L500.2500 #### [facility] [address] [place], [address] Erythrocyte distribution width (RBC) [Ratio] 13.1 % Normal 11.6-14.[address] [facility] Comment on above: Performed By: #### L 100.0100, L500.2500 #### [facility] [address] [place], [address] Hematocrit (Bld) [Volume fraction] 41.2 % Normal 40-[address] [facility] Comment on above: Performed By: #### L 100.0100, L500.2500 #### [facility] [address] [place], [address] Hemoglobin (Bld) [Mass/Vol] 13.8 g/dL Normal 13.0-16.[address] [facility] Comment on above: Performed By: #### L 100.0100, L500.2500 #### [facility] [address] [place], [address] IG% 0.300 Normal 0.0-0.[address] [facility] Comment on above: Result Comment: IG% - Immature Granulocytes (promyelocytes, myelocytes and metamyelocytes) > 1% indicates that a LEFT SHIFT is Present. Performed By: #### L 100.0100, L500.2500 #### [facility] [address] [place], [address] Lymphocytes/100 WBC (Bld) 20.9 % Normal 19-[address] [facility] Comment on above: Performed By: #### L 100.0100, L500.2500 #### [facility] [address] [place], [address] MCH (RBC) [Entitic mass] 30.2 pg Normal 27.0-32.[address] [facility] Comment on above: Performed By: #### L 100.0100, L500.2500 #### [facility] [address] [place], [address] MCHC (RBC) [Mass/Vol] 33.5 g/dL Normal 32-36 [facility] Comment on above: Performed By: #### L 100.0100, L500.2500 #### [facility] [address] [place], [address] MCV (RBC) [Entitic vol] 90.2 fL Normal 80-[address] [facility] Comment on above: Performed By: #### L 100.0100, L500.2500 #### [facility] [address] [place], [address] Monocytes/100 WBC (Bld) 13.2 % High 0-[address] [facility] Comment on above: Performed By: #### L 100.0100, L500.2500 #### [facility] [address] [place], [address] Neutrophils/100 WBC (Bld) 62.5 % Normal 47-[address] [facility] Comment on above: Performed By: #### L 100.0100, L500.2500 #### [facility] [address] [place], [address] Nucleated RBC (Bld) [#/Vol] 0 10*3/uL Normal 0-[address] [facility] Comment on above: Performed By: #### L 100.0100, L500.2500 #### [facility] [address] [place], [address] Platelet mean volume (Bld) [Entitic vol] 11.5 fL Normal 6.2-12.[address] [facility] Comment on above: Performed By: #### L 100.0100, L500.2500 #### [facility] [address] [place], [address] Platelets (Bld) [#/Vol] 181 10*3/uL Normal 150-[address] [facility] Comment on above: Performed By: #### L 100.0100, L500.2500 #### [facility] [address] [place], [address] RBC (Bld) [#/Vol] 4.57 10*6/uL Low 4.6-6.2 [facility] Comment on above: Performed By: #### L 100.0100, L500.2500 #### [facility] [address] [place], [address] RDW SD 42.6 fl Normal 35.1-43.[address] [facility] Comment on above: Performed By: #### L 100.0100, L500.2500 #### [facility] [address] [place], [address] WBC (Bld) [#/Vol] 10.1 10*3/uL Normal 4.4-11.0 [facility] Comment on above: Performed By: #### L 100.0100, L500.2500 #### [facility] [address] [place], [address] Discharge Instructionon 08-18 Discharge Instruction [facility] Medical Records Department [address] [place] [address] Instructions for Home/Discharge Instructions 09/13/24 0839 MR#: [id number] Acct: [id number] Name: MARIO LORENZO Rep #: [id number] : 1935 88 From: Benjy Best MD PCP: Dr. Farshad Hancock MD Status:ADM IN Discharge Instructions Diet Discharge Diet: Low fat / Low cholesterol DC O2, CPAP, BIPAP needs Additional Home O2 Discharge instructions: No Dressing / Incision Discharge Activity: Return to Normal Activity Dressing / Incision Call your doctor if you observe: Fever of 101 or Higher, Shortness of breath, Dizziness, Fainting spells, Swelling in the ankles, Chest pain and Increased palpitations (irregular heartbeat) Follow Up Care Test Results: Test results from this visit will be discussed in further detail at your follow-up appointment, if applicable. Discharge Plan Admission Admit Date/Time: 09/11/24 17:02 Attending Provider: Benjy Best Primary Care Provider: Farshad Hancock Consulting Providers: Yogi Gooden; Jacob Licea Discharge Orders/Prescriptions Prescriptions: New furosemide 40 mg Tablet 40 mg PO DAILY 30 Days Qty: 30 3RF atorvastatin 40 mg Tablet 40 mg PO QHS 30 Days Qty: 30 3RF clopidogrel 75 mg Tablet 75 mg PO DAILY 30 Days Qty: 30 3RF aspirin 81 mg Tablet,Delayed Release (Dr/Ec) 81 mg PO BREAKFAST 30 Days Qty: 30 3RF spironolactone 25 mg Tablet 12.5 mg PO DAILY 30 Days Qty: 15 3RF carvedilol 3.125 mg Tablet 3.125 mg PO BID 30 Days Qty: 60 3RF losartan 25 mg Tablet 25 mg PO DAILY 30 Days Qty: 30 3RF Jardiance 10 mg Tablet 10 mg PO DAILY 30 Days Qty: 30 3RF Discontinued amlodipine 2.5 MG tablet 1 tab PO DAILY Patient Comments: losartan-hydrochloro thiazide 1 EACH tablet 1 tab PO DAILY Patient Comments: atenolol 50 MG tablet 1 tab PO DAILY Patient Comments: Centrum Silver 1 EACH tablet 1 ea PO DAILY cholecalciferol (vitamin D3) [Vitamin D3] 1,000 UNIT capsule 1,000 unit PO DAILY hydrocodone-acetamin ophen 1 TABLET tablet 1 - 2 tab PO Q4H PRN PRN (Reason: Pain) Qty: 20 0RF Referrals / Follow Up: Farshad Hancock MD [Primary Care Provider] - Within 1 Week Tavon Peterson MD [Med Staff - Active Staff] - Within 1 Month Disposition Disposition (needs filled in before D/C Order can be placed): Home, Self Care 09/13/24 0857 Benjy Best MD CC: Dr. Yogi Gooden MD; Dr. Farshad Hancock MD; Dr. Jacob Licea MD Signed Normal [facility] 12 Lead EKGon 09-12-2024 12 Lead EKG [facility] Cardiovascular Services [address] [place] [address] 12 Lead EKG 09/12/24 0438 MR#: [id number] Acct: [id number] Name: MARIO LORENZO Rep #: [id number] : 1935 88 From: Tavon Peterson MD Attending Dr: Dr. Benjy Best MD Status : ADM IN Ordering Dr: Natalie Dubose MD Date: 09/12/24 Location: ICU Sex: M C Admitted: 09/11/24 Test Reason : AM EKG Blood Pressure : */* mmHG Vent. Rate : 82 BPM Atrial Rate : 82 BPM P-R Int : 174 ms QRS Dur : 78 ms QT Int : 392 ms P-R-T Axes : 50 -10 46 degrees QTcB Int : 457 ms Critical Test Result: STEMI Normal sinus rhythm with sinus arrhythmia Septal infarct , age undetermined Lateral infarct , possibly acute ACUTE ND / STEMI Abnormal ECG When compared with ECG of 11-Sep-2024 18:19, MANUAL COMPARISON REQUIRED DATA IS UNCONFIRMED Confirmed by Tavon Peterson ([id number]), online editor ANTIONE MAJOR ([id number]) on 09/12/2024 9:43:13 AM Referred By: Yogi Gooden Confirmed By: Tavon Peterson 09/12/24 0943 Date Tavon Peterson MD CC: Dr. Yogi Gooden MD; Dr. Natalie Dubose MD; Dr. Farshad Hancock MD; Dr. Benjy Best MD Signed Normal [facility] CBC W/Diff, Automatedon 08-18 Absolute Lymph 2.02 X10 3/uL Normal 0.83-4.[address] [facility] Comment on above: Performed By: #### L 100.0100 ####[facility] [address] [place], [address] Absolute Neut 10.4 X10 3/uL High 2.0-7.[address] [facility] Comment on above: Performed By: #### L 100.0100 ####[facility] [address] [place], [address] Comprehensive Metabolic Prof ilon 09-12-2024 Albumin [Mass/Vol] 3.5 g/dL Normal 3.2-5.0 [facility] Comment on above: Performed By: #### L 500.4050, L500.4100 ####[facility] [address] [place], [address] Albumin/Globulin [Mass ratio] 1.0 {ratio} Normal 0.9-2.[address] [facility] Comment on above: Performed By: #### L 500.4050, L500.4100 ####[facility] [address] [place], [address] ALK P 76 U/L Normal 45-[address] [facility] Comment on above: Performed By: #### L 500.4050, L500.4100 ####[facility] [address] [place], [address] ALT [Catalytic activity/Vol] 47 U/L Normal 16-[address] [facility] Comment on above: Performed By: #### L 500.4050, L500.4100 ####[facility] [address] [place], [address] AST [Catalytic activity/Vol] 257 U/L High 15-[address] [facility] Comment on above: Performed By: #### L 500.4050, L500.4100 ####[facility] [address] [place], [address] Bilirubin [Mass/Vol] 1.30 mg/dL High 0.20-1.00 [facility] Comment on above: Result Comment: For patients on eltrombopag therapy, use of Dimension [place] TBIL is not recommended. Performed By: #### L 500.4050, L500.4100 ####[facility] [address] [place], [address] BUN/CRE 18.9 RATIO Normal 10-[address] [facility] Comment on above: Performed By: #### L 500.4050, L500.4100 ####[facility] [address] [place], [address] CA,Total 8.7 mg/dL Normal 8.5-10.[address] [facility] Comment on above: Performed By: #### L 500.4050, L500.4100 ####[facility] [address] [place], [address] Chloride [Moles/Vol] 106 mmol/L Normal 98-107 [facility] Comment on above: Performed By: #### L 500.4050, L500.4100 ####[facility] [address] [place], [address] CO2 [Moles/Vol] 24.0 mmol/L Normal 21.0-32.[address] [facility] Comment on above: Performed By: #### L 500.4050, L500.4100 ####[facility] [address] [place], [address] Creatinine [Mass/Vol] 1.32 mg/dL High 0.70-1.30 [facility] Comment on above: Result Comment: The validity of the calculated GFR GFRAA in patients over 70 years has not been determined. Clinical correlation is essential. Performed By: #### L 500.4050, L500.4100 ####[facility] [address] [place], [address] ECRCL 32.94 ml/min Normal [facility] Comment on above: Performed By: #### L 500.4050, L500.4100 ####[facility] [address] [place], [address] EST GFR - AA 66 mL/min Normal >[address] [facility] Comment on above: Result Comment: Afri can [place] GFR Calc Performed By: #### L 500.4050, L500.4100 ####[facility] [address] [place], [address] GAP 9 Normal 5-[address] [facility] Comment on above: Performed By: #### L 500.4050, L500.4100 ####[facility] [address] [place], [address] GFR/1.73 sq M.predicted among non-blacks MDRD (S/P/Bld) [Vol rate/Area] 54 mL/min/{1.73_m2} Low >[address] [facility] Comment on above: Result Comment: Non- GFR Calc Performed By: #### L 500.4050, L500.4100 ####[facility] [address] [place], [address] Globulin (S) [Mass/Vol] 3.6 g/dL Normal 2.2-4.[address] [facility] Comment on above: Performed By: #### L 500.4050, L500.4100 ####[facility] [address] [place], [address] Glucose [Mass/Vol] 143 mg/dL High 74-106 [facility] Comment on above: Result Comment: Fast ing Glucose result greater than or equal to 126 mg/dL suggests DIABETES MELLITUS per A.D.A. criteria. Performed By: #### L 500.4050, L500.4100 ####[facility] [address] [place], [address] Potassium [Moles/Vol] 3.8 mmol/L Normal 3.5-5.1 [facility] Comment on above: Performed By: #### L 500.4050, L500.4100 ####[facility] [address] [place], [address] Sodium [Moles/Vol] 139 mmol/L Normal 136-145 [facility] Comment on above: Performed By: #### L 500.4050, L500.4100 ####[facility] [address] [place], [address] T PROT 7.1 g/dL Normal 6.4-8.[address] [facility] Comment on above: Performed By: #### L 500.4050, L500.4100 ####[facility] [address] [place], [address] Urea nitrogen [Mass/Vol] 25 mg/dL High 7-[address] [facility] Comment on above: Performed By: #### L 500.4050, L500.4100 ####[facility] [address] [place], [address] Lipid Profileon 09-12-2024 Cholesterol [Mass/Vol] 208 mg/dL High 200 [facility] Comment on above: Result Comment: <200 mg/dL Desirable 200-240 mg/dL Borderline >240 mg/dL High Risk Performed By: #### L 500.4050, L500.4100 ####[facility] [address] [place], [address] Cholesterol in HDL [Mass/Vol] 55 mg/dL Normal [facility] Comment on above: Result Comment: The drugs N-Acetylcysteine and Metamizole may falsely depress this assay. Reference Range HDL <40 mg/dL Low HDL Cholesterol HDL >or= 60 mg/dL High HDL Cholesterol Performed By: #### L 500.4050, L500.4100 ####[facility] [address] [place], [address] Cholesterol in LDL [Mass/Vol] 128 mg/dL Normal 0-[address] [facility] Comment on above: Performed By: #### L 500.4050, L500.4100 ####[facility] [address] [place], [address] Cholesterol in VLDL [Mass/Vol] 25 mg/dL Normal 5-[address] [facility] Comment on above: Performed By: #### L 500.4050, L500.4100 ####[facility] [address] [place], [address] Triglyceride [Mass/Vol] 127 mg/dL Normal [facility] Comment on above: Result Comment: The drugs N-Acetylcysteine and Metamizole may falsely depress this assay. Serum Triglycerides Reference Interval Normal <150 mg/dL Borderline high 150 - 199 mg/dL High 200 - 499 mg/dL Very High > or = 500 mg/dL Performed By: #### L 500.4050, L500.4100 ####[facility] [address] [place], [address] 12 Lead EKGon 09-11-2024 12 Lead EKG [facility] Cardiovascular Services [address] [place] [address] 12 Lead EKG 09/11/24 1819 MR#: [id number] Acct: [id number] Name: MARIO LORENZO Rep #: [id number] : 1935 88 From: Tavon Peterson MD Attending Dr: Dr. Benjy Best MD Status : ADM IN Ordering Dr: Quang Arce MD Date: 09/11/24 Location: ICU Sex: M C Admitted: 09/11/24 Test Reason : POST CATH/STEMI Blood Pressure : */* mmHG Vent. Rate : 93 BPM Atrial Rate : 93 BPM P-R Int : 192 ms QRS Dur : 86 ms QT Int : 450 ms P-R-T Axes : 67 -1 69 degrees QTcB Int : 559 ms Critical Test Result: Long QTc , STEMI Normal sinus rhythm Septal infarct , age undetermined Lateral infarct , possibly acute Prolonged QT ACUTE ND / STEMI Abnormal ECG When compared with ECG of 11-Sep-2024 16:15, MANUAL COMPARISON REQUIRED DATA IS UNCONFIRMED Confirmed by Tavon Peterson ([id number]), online editor ANTIONE MAJOR ([id number]) on 09/12/2024 9:43:22 AM Referred By: Yogi Gooden Confirmed By: Tavon Peterson 09/12/24 0943 Date Tavon Peterson MD CC: Dr. Yogi Gooden MD; Dr. Farshad Hancock MD; Dr. Benjy Best MD; Dr. Quang Arce MD Signed Normal [facility] Basic Metabolic Profile (BMP )on 09-11-2024 BUN/CRE 24.0 RATIO High 10-[address] [facility] Comment on above: Order Comment: 'TROP ' Serial specimen #1, #2 or #3: 1 Performed By: #### L 300.3900, L300.4310, L100.0100, L500.2500, L501.4020 ####[facility] [address] [place], [address] CA,Total 9.1 mg/dL Normal 8.5-10.[address] [facility] Comment on above: Order Comment: 'TROP ' Serial specimen #1, #2 or #3: 1 Performed By: #### L 300.3900, L300.4310, L100.0100, L500.2500, L501.4020 ####[facility] [address] [place], [address] Chloride [Moles/Vol] 107 mmol/L Normal 98-107 [facility] Comment on above: Order Comment: 'TROP ' Serial specimen #1, #2 or #3: 1 Performed By: #### L 300.3900, L300.4310, L100.0100, L500.2500, L501.4020 ####[facility] [address] [place], [address] CO2 [Moles/Vol] 21.0 mmol/L Normal 21.0-32.[address] [facility] Comment on above: Order Comment: 'TROP ' Serial specimen #1, #2 or #3: 1 Performed By: #### L 300.3900, L300.4310, L100.0100, L500.2500, L501.4020 ####[facility] [address] [place], [address] Creatinine [Mass/Vol] 1.25 mg/dL Normal 0.70-1.30 [facility] Comment on above: Order Comment: 'TROP ' Serial specimen #1, #2 or #3: 1 Result Comment: The validity of the calculated GFR GFRAA in patients over 70 years has not been determined. Clinical correlation is essential. Performed By: #### L 300.3900, L300.4310, L100.0100, L500.2500, L501.4020 ####[facility] [address] [place], [address] ECRCL 36.23 ml/min Normal [facility] Comment on above: Order Comment: 'TROP ' Serial specimen #1, #2 or #3: 1 Performed By: #### L 300.3900, L300.4310, L100.0100, L500.2500, L501.4020 ####[facility] [address] [place], [address] EST GFR - AA 70 mL/min Normal >[address] [facility] Comment on above: Order Comment: 'TROP ' Serial specimen #1, #2 or #3: 1 Result Comment: Afri can [place] GFR Calc Performed By: #### L 300.3900, L300.4310, L100.0100, L500.2500, L501.4020 ####[facility] [address] [place], [address] GAP 12 Normal 5-[address] [facility] Comment on above: Order Comment: 'TROP ' Serial specimen #1, #2 or #3: 1 Performed By: #### L 300.3900, L300.4310, L100.0100, L500.2500, L501.4020 ####[facility] [address] [place], [address] GFR/1.73 sq M.predicted among non-blacks MDRD (S/P/Bld) [Vol rate/Area] 58 mL/min/{1.73_m2} Low >[address] [facility] Comment on above: Order Comment: 'TROP ' Serial specimen #1, #2 or #3: 1 Result Comment: Non- GFR Calc Performed By: #### L 300.3900, L300.4310, L100.0100, L500.2500, L501.4020 ####[facility] [address] [place], [address] Glucose [Mass/Vol] 148 mg/dL High 74-106 [facility] Comment on above: Order Comment: 'TROP ' Serial specimen #1, #2 or #3: 1 Result Comment: Fast ing Glucose result greater than or equal to 126 mg/dL suggests DIABETES MELLITUS per A.D.A. criteria. Performed By: #### L 300.3900, L300.4310, L100.0100, L500.2500, L501.4020 ####[facility] [address] [place], [address] Potassium [Moles/Vol] 3.4 mmol/L Low 3.5-5.1 [facility] Comment on above: Order Comment: 'TROP ' Serial specimen #1, #2 or #3: 1 Performed By: #### L 300.3900, L300.4310, L100.0100, L500.2500, L501.4020 ####[facility] [address] [place], [address] Sodium [Moles/Vol] 140 mmol/L Normal 136-145 [facility] Comment on above: Order Comment: 'TROP ' Serial specimen #1, #2 or #3: 1 Performed By: #### L 300.3900, L300.4310, L100.0100, L500.2500, L501.4020 ####[facility] [address] [place], [address] Urea nitrogen [Mass/Vol] 30 mg/dL High 7-[address] [facility] Comment on above: Order Comment: 'TROP ' Serial specimen #1, #2 or #3: 1 Performed By: #### L 300.3900, L300.4310, L100.0100, L500.2500, L501.4020 ####[facility] [address] [place], [address] CBC W/Diff, Automatedon 08-18 Absolute Lymph 1.03 X10 3/uL Normal 0.83-4.[address] [facility] Comment on above: Performed By: #### L 300.3900, L300.4310, L100.0100, L500.2500, L501.4020 ####[facility] [address] [place], [address] Absolute Neut 13.1 X10 3/uL High 2.0-7.[address] [facility] Comment on above: Performed By: #### L 300.3900, L300.4310, L100.0100, L500.2500, L501.4020 ####[facility] [address] [place], [address] Basophils/100 WBC (Bld) 0.5 % Normal 0-[address] [facility] Comment on above: Performed By: #### L 300.3900, L300.4310, L100.0100, L500.2500, L501.4020 ####[facility] [address] [place], [address] Eosinophils/100 WBC (Bld) 0.1 % Normal 0-[address] [facility] Comment on above: Performed By: #### L 300.3900, L300.4310, L100.0100, L500.2500, L501.4020 ####[facility] [address] [place], [address] Erythrocyte distribution width (RBC) [Ratio] 12.8 % Normal 11.6-14.[address] [facility] Comment on above: Performed By: #### L 300.3900, L300.4310, L100.0100, L500.2500, L501.4020 ####[facility] [address] [place], [address] Hematocrit (Bld) [Volume fraction] 48.1 % Normal 40-[address] [facility] Comment on above: Performed By: #### L 300.3900, L300.4310, L100.0100, L500.2500, L501.4020 ####[facility] [address] [place], [address] Hemoglobin (Bld) [Mass/Vol] 15.9 g/dL Normal 13.0-16.[address] [facility] Comment on above: Performed By: #### L 300.3900, L300.4310, L100.0100, L500.2500, L501.4020 ####[facility] [address] [place], [address] IG% 0.500 Normal 0.0-0.[address] [facility] Comment on above: Result Comment: IG% - Immature Granulocytes (promyelocytes, myelocytes and metamyelocytes) > 1% indicates that a LEFT SHIFT is Present. Performed By: #### L 300.3900, L300.4310, L100.0100, L500.2500, L501.4020 ####[facility] [address] [place], [address] Lymphocytes/100 WBC (Bld) 6.8 % Low 19-[address] [facility] Comment on above: Performed By: #### L 300.3900, L300.4310, L100.0100, L500.2500, L501.4020 ####[facility] [address] [place], [address] MCH (RBC) [Entitic mass] 30.3 pg Normal 27.0-32.[address] [facility] Comment on above: Performed By: #### L 300.3900, L300.4310, L100.0100, L500.2500, L501.4020 ####[facility] [address] [place], [address] MCHC (RBC) [Mass/Vol] 33.1 g/dL Normal 32-36 [facility] Comment on above: Performed By: #### L 300.3900, L300.4310, L100.0100, L500.2500, L501.4020 ####[facility] [address] [place], [address] MCV (RBC) [Entitic vol] 91.6 fL Normal 80-[address] [facility] Comment on above: Performed By: #### L 300.3900, L300.4310, L100.0100, L500.2500, L501.4020 ####[facility] [address] [place], [address] Monocytes/100 WBC (Bld) 5.2 % Normal 0-[address] [facility] Comment on above: Performed By: #### L 300.3900, L300.4310, L100.0100, L500.2500, L501.4020 ####[facility] [address] [place], [address] Neutrophils/100 WBC (Bld) 86.9 % High 47-[address] [facility] Comment on above: Performed By: #### L 300.3900, L300.4310, L100.0100, L500.2500, L501.4020 ####[facility] [address] [place], [address] Nucleated RBC (Bld) [#/Vol] 0 10*3/uL Normal 0-[address] [facility] Comment on above: Performed By: #### L 300.3900, L300.4310, L100.0100, L500.2500, L501.4020 ####[facility] [address] [place], [address] Platelet mean volume (Bld) [Entitic vol] 12.3 fL High 6.2-12.[address] [facility] Comment on above: Performed By: #### L 300.3900, L300.4310, L100.0100, L500.2500, L501.4020 ####[facility] [address] [place], [address] Platelets (Bld) [#/Vol] 223 10*3/uL Normal 150-[address] [facility] Comment on above: Performed By: #### L 300.3900, L300.4310, L100.0100, L500.2500, L501.4020 ####[facility] [address] [place], [address] RBC (Bld) [#/Vol] 5.25 10*6/uL Normal 4.6-6.2 [facility] Comment on above: Performed By: #### L 300.3900, L300.4310, L100.0100, L500.2500, L501.4020 ####[facility] [address] [place], [address] RDW SD 43.1 fl Normal 35.1-43.[address] [facility] Comment on above: Performed By: #### L 300.3900, L300.4310, L100.0100, L500.2500, L501.4020 ####[facility] [address] [place], [address] WBC (Bld) [#/Vol] 15.1 10*3/uL High 4.4-11.0 [facility] Comment on above: Performed By: #### L 300.3900, L300.4310, L100.0100, L500.2500, L501.4020 ####[facility] [address] [place], [address] Cardiac Cath Interventionon 09-11-2024 Cardiac Cath Intervention [facility] Imaging Services [address] [place] [address] Cardiac Cath Intervention MR#: [id number] Acct: [id number] Name: MARIO LORENZO Rep #: [id number] : 1935 88 From: Jacob Licea MD PCP: Dr. Farshad Hancock MD Status:ADM IN Patient Name: MARIO LORENZO Study Date: 09/11/2024 Performing: Cathie Licea MD Ht: 66 inches 167.64 cm : 1935 Wt: 138.23 lbs 62.7 kg Age: 88 Gender: male BSA: 1.71 PROCEDURE(S) PERFORMED DC01-(23184)LHC/COR/ LV IC16-(80882/C9606)AM I, YASHIRA OR PTCA, ARTERY/GRAFT, SINGLE VESSEL CLINICAL PROFILE AND CO-MORBIDITIES Indications: ACS <= 24 hrs, STEMI Heart Failure: None CONCLUSIONS CAD as described. LVEF is 15-20%. No significant or MR. Successful thrombectomy and YASHIRA to pD1. RECOMMENDATIONS DESCRIPTION OF PROCEDURE The patient arrived to the procedure lab. The risks and benefits of the procedure as well as a full description of our services here and lack of surgical backup were fully explained to the patient and/or their significant other prior to the catheterization. The Timeout was completed, verifying the correct patient and procedure. The patient's procedural site was prepped and draped in the usual fashion. Local anesthetic was given subcutaneously to right radial region with Lidocaine 2%. Using a modified Seldinger technique, arterial access was obtained via the right radial artery, a 6Fr sheath was inserted.. Left Ventriculography was performed in OBRIEN projection using a 5 Fr. JR4. LV to AO pullback pressures were then recorded. Right Coronary Artery selective angiography was then performed in multiple views using a 5 Fr. JR 4 catheter XB 3.0 Guide catheter was inserted and engaged into the LCA. BMW Guide wire was advanced to the Diag Priority One inserted Pass # 1 Priority One Removed Emerge 2.25x12 Balloon catheter was inserted. PTCA balloon inflated at 5 atms for 6 secs. PTCA balloon inflated at 6 atms for 10 secs. Angiogram performed post balloon dilatation. Menard [place] 2.5x15 Drug Eluting stent was inserted. Angiogram performed post stent deployment. NC Emerge 2.50x8 Balloon catheter was inserted. Angiogram performed post balloon dilatation. The arterial sheath was pulled and a TR Band was applied for hemostasis w/ 12ml air CORONARY ANGIOGRAPHY DOMINANCE: Right Dominant LEFT HEART ASSESSMENT Left Ventricular Ejection Fraction: by LV Gram 15-20 %. Base of the LV is bess well. Rest of the LV appears to be severely hypokinetic. LEFT MAIN: Mild luminal irregularities LEFT ANTERIOR DESCENDING ARTERY: DIAGONAL 1: Proximal - 100 % Stenosis CIRCUMFLEX ARTERY: Mild luminal irregularities RIGHT CORONARY ARTERY: PROX RCA: 30 % Stenosis VALVE FINDINGS: No Aortic Valve Stenosis No Mitral Insufficiency INTERVENTION INFORMATION LESION SITE: 1st Diagonal (Proximal) Lesion Complexity: High/C, chronic total occlusion: No, lesion at bifurcation: No, thrombus present: Yes, lesion length: 12 mm, culprit lesion: Yes, Previously treated lesion: No Pre Stenosis: 100 % Pre intervention SAGAR flow: 0 PROCEDURE: Thrombectomy, Drug Eluting Stent with pre and post dilatation Post Stenosis: 0 % Post intervention SAGAR flow: 2 Lesion Devices: Cordis 6 Fr XB3.0 100cm Guide Catheter Deutsch .014 190cm BMW [place] Straight Terumo Priority One Aspiration Catheter [place] [employer] EMERGE MR 2.25x12 BALLOON Medtronic 2.50 x 15 LUIS FRONTIER YASHIRA [place] [employer] NC EMERGE MR 2.50x08 BALLOON COMPLICATIONS No Complications PROCEDURE MEDICATIONS Oxygen: 2 L/min via nasal cannula Heparin given IA 09/11/2024 17:03:37 Nitro 200 mcg IC 09/11/2024 17:34:29 Verapamil 2.5mg, Ntg 100mcgs, 3000 units of Heparin given IA 09/11/2024 17:03:37 SUMMARY OF HEMODYNAMIC DATA Time AIR REST ECG 16:52:17 Art 140/75 (99) 17:05:32 AO 131/68 (89) SA 17:18:27 LV 128/6, 24 17:41:37 LV 120/17, 25 17:42:02 LV 124/5, 25 17:42:43 LV 127/6, 24 17:42:51 LVp 128/10, 23 17:42:57 AOp 123/76 (98) 17:43:04 17:53:53 Signed By Cathie Licea MD On 09/11/2024 17:59:16 Cathie Licea MD 09/11/24 7979 Date Jacob Licea MD Cosigner Signature: Date (if indicated) CC: Dr. Yogi Gooden MD; Dr. Farshad Hancock MD; Dr. Jacob Licea MD Date Dictated: 09/11/24 1658 Date Transcribed: 09/11/241758 Internet Marketer: NN Signed Normal [facility] Consultation - Cardiologyon 09-11-2024 Consultation - Cardiology [facility] Medical Records Department [address] [place] [address] Consultation - Cardiology 09/11/24 1803 MR#: [id number] Acct: [id number] Name: MARIO LORENZO Rep #: [id number] : 1935 88 From: Yogi Gooden MD PCP: Dr. Farshad Hancock MD Status:ADM IN Location: ICU [id number] Assessment Plan Assessment/Plan (1) ST elevation (STEMI) myocardial infarction: PLAN: Patient was taken emergently to the cardiac catheterization lab. Patient had a totally occluded proximal first diagonal branch. Successful percutaneous intervention was performed with placement of a drug-eluting stent. Continue aspirin lifelong. Clopidogrel for at least 6 months. (2) Coronary artery disease: PLAN: Aspirin, statins, beta-blockers, clopidogrel. (3) Left ventricular systolic dysfunction (LVSD): PLAN: Secondary to #1 above. LVEF estimated at 15%. Beta-blockers, spironolactone, losartan, empagliflozin. Also start on furosemide. (4) Hypertension: PLAN: Carvedilol, losartan, furosemide, Aldactone HPI Consult Data Date of Consult: 09/11/24 HPI Narrative Reason for Consultation: STEMI HPI Narrative: 88-year-old gentleman with past medical history significant for hypertension, presented to the emergency room with complaints of chest pain that started about an hour prior to presentation. In the emergency room, an EKG was done. It showed changes consistent with acute ST elevation myocardial infarction. Subsequently a STEMI alert was called. Denies any previous cardiac history. [facility] Medical History (Updated 09/11/24 @ 18:[address] Yogi Gooden MD) Chronic neuropathic pain Spinal stenosis of lumbar region Former tobacco use Brain aneurysm Hypertension Home Medications ???Medication ???Instructions ???Recorded ???Last Taken ???Type amlodipine 2.5 mg tablet 1 tab PO DAILY 04/05/14 Unknown History atenolol 50 mg tablet 1 tab PO DAILY 04/05/14 Unknown History losartan 100 1 tab PO DAILY 04/05/14 Unknown History mg-hydrochlorothiazi de 25 mg tablet arjpvfbc-eqs-gdxyw acid 0.4 1 ea PO DAILY 04/05/14 Unknown History mg-lycopene 300 mcg-lutein 250 mcg tablet (Centrum Silver) cholecalciferol (vitamin D3) 25 1,000 unit PO DAILY 07/14/14 Unknown History mcg (1,000 unit) capsule (Vitamin D3) hydrocodone-acetamin ophen 5-325mg 1 - 2 tab PO Q4H PRN PRN Pain ##20 03/15/16 Unknown Rx 5mg-325mg Allergy/AdvReac Type Severity Reaction Status Date / Time hydrochlorothiazide (From AdvReac Other Verified 09/11/24 16:10 Zestoretic) lisinopril (From Zestoretic) AdvReac Other Verified 09/11/24 16:10 Family History (Updated 09/11/24 @ 17:[address] Natalie Dubose MD) Mother Cancer Father Cancer Surgical History Hx of hemorrhoidectomy Social History (Updated 09/11/24 @ 17:[address] Natalie Dubose MD) household members: spouse Smoking Status: Former smoker how long ago did patient quit smoking: Patient smoked 2 ppd from teen until 30 y/o then quit. alcohol intake: never substance use type: does not use Physical Exam Narrative Comfortable. Heart sounds 1 and 2 noted. Chest clear to auscultation bilaterally. Abdomen soft. Alert oriented x 3. No ankle edema. Risk Stratification Risk Stratification Applicable: No Objective Data Vital Signs: Vital Signs Temp Pulse Resp BP Pulse Ox O2 Del Method 97.8 F 100 16 133/90 H 98 Room Air 09/11/24 16:35 09/11/24 16:35 09/11/24 16:35 09/11/24 16:35 09/11/24 16:35 09/11/24 16:32 Oxygen Delivery Method Room Air Weight: 138 lb 3.677 oz Body Mass Index (BMI) 22.3 Lab / Micro Data 09/11/24 16:22 09/11/24 16:22 Labs: Laboratory Results - last 24 hr 09/11/24 16:22: WBC 15.1 H, RBC 5.25, Hgb 15.9, Hct 48.1, MCV 91.6, MCH 30.3, MCHC 33.1, RDW Std Deviation 43.1, RDW Coeff of Vanessa 12.8, Plt Count 223, MPV 12.3 H, Immature Gran % (Auto) 0.500, Neut % (Auto) 86.9 H, Lymph % (Auto) 6.8 L, [place] % (Auto) 5.2, Eos % (Auto) 0.1, Baso % (Auto) 0.5, A bsolute Neuts (auto) 13.1 H, Absolute Lymphs (auto) 1.03, Nucleated RBC % 0, PT 13.8, INR 1.1, APTT 23.5 L, Sodium 140, Potassium 3.4 L, Chloride 107, Carbon Dioxide 21.0, Anion Gap 12, BUN 30 H, Creatinine 1.25, Estim Creat Clear Calc 36.23, Est GFR (MDRD) Af Amer 70, Est GFR (MDRD) Non-Af 58 L , BUN/Creatinine Ratio 24.0 H, Glucose 148 H, Calcium 9.1, Troponin I High Sens 4258 H* Rhythm Strip Rhythm Strip: Sinus Rhythm Rate: 100 Ectopy: None Cardiology Labs/Tests 09/11/24 16:22: WBC 15.1 H, RBC 5.25, Hgb 15.9, Hct 48.1, MCV 91.6, MCH 30.3, MCHC 33.1, Plt Count 223, MPV 12.3 H, Immature Gran % (Auto) 0.500, Neut % (Auto) 86.9 H, Lymph % (Auto) 6.8 L, [place] % (Auto) 5.2, Eos % (Auto) 0.1, Baso % (Auto) 0.5, Absolute Neuts (auto) 13.1 H, Nucleated RBC % 0, PT 13 (more content not included)... Normal [facility] Echo Complete W/ Contraston 09-11-2024 Echo Complete W/ Contrast [facility] Cardiovascular Services [address] [place] [address] Echo Complete W/ Contrast 09/12/24 0757 MR#: [id number] Acct: [id number] Name: MARIO LORENZO Rep #: [id number] : 1935 88 From: Yogi Gooden MD Attending Dr: Dr. Benjy Best MD Status : ADM IN Ordering Dr: Natalie Dubose MD Date: 09/11/24 Location: ICU Sex: M C Admitted: 09/11/24 Reason For Study: STEMI Procedure This was a 2D Doppler, Color Flow transthoracic echocardiogram. The study was technically difficult. Due to poor accoustic windows. Contrast injection was performed. Exam performed in department. Left Ventricle Normal LV size. Mild concentric left ventricular hypertrophy. The left ventricular ejection fraction is 20 %. Stage 1 diastolic dysfunction. There is a large sized apical, septal, anteroseptal, anterior, posterior, and lateral wall motion abnormality with hypokinesis to akinesis of the segments. Right Ventricle Normal right ventricle. Atria The left and right atria are normal. Mitral Valve Mild (1+) mitral valve insufficiency. Tricuspid Valve Trivial tricuspid valve insufficiency. Right ventricular systolic pressure estimated to be 37 mmHg. Aortic Valve The aortic valve is not well visualized in the short axis view. Mild (1+) aortic valve insufficiency. Pulmonic Valve The pulmonic valve is not well visualized. Great Vessels Normal sized aortic root. Pericardium/Pleural No pericardial effusion. Medication Diluted definity 3.0ml given slow IV push to enhance endocardial definition. MMode/2D Measurements Calculations LVIDd: 4.2 cm IVSd: 1.2 cm Ao root diam: 3.6 cm LVIDs: 2.4 cm LVPWd: 1.1 cm FS: 41.1 % _ LAV(MOD-bp): 41.7 ml LVAd ap4: 26.8 cm2 SV(MOD-sp4): 14.5 ml LAV(MOD-bp) Indexed: 25.3 ml/m2 LVLd ap4: 8.1 cm SI(MOD-sp4): 8.8 ml/m2 LAV(MOD-sp2): 45.7 ml EDV(MOD-sp4): 72.5 ml LAV(MOD-sp4): 37.9 ml EDV(sp4-el): 75.1 ml LVAs ap4: 23.2 cm2 LVLs ap4: 7.7 cm ESV(MOD-sp4): 58.0 ml ESV(sp4-el): 59.4 ml EF(MOD-sp4): 20.0 % EF(sp4-el): 20.9 % _ SV(sp4-el): 15.7 ml LA A4 area: 14.0 cm2 TAPSE: 2.0 cm Time Measurements MV dec time: 0.16 sec Doppler Measurements Calculations MV E max [place]: 37.0 cm/sec Lat Peak E' [place]: 3.7 cm/sec Med Peak E' [place]: 4.6 cm/sec MV A max [place]: 61.7 cm/sec E/E' lat: 9.9 E/E' med: 8.1 MV E/A: 0.60 _ MV V2 max: 65.8 cm/sec Ao V2 max: 91.2 cm/sec MV max P.7 mmHg MV dec slope: 239.9 cm/sec2 Ao max P.3 mmHg MV V2 mean: 35.3 cm/sec Ao V2 mean: 70.2 cm/sec MV mean P.58 mmHg Ao mean P.2 mmHg MV V2 VTI: 10.4 cm Ao V2 VTI: 16.0 cm AV (velocity ratio): 0.94 _ LV V1 max: 77.9 cm/sec PA V2 max: 60.9 cm/sec TR max [place]: 282.7 cm/sec LV V1 max P.4 mmHg TR max P.0 mmHg LV V1 mean P.5 mmHg LV V1 mean: 58.3 cm/sec LV V1 VTI: 15.1 cm ECHO/Echo Complete W/ Contrast Interpretation Summary Mild concentric left ventricular hypertrophy. The left ventricular ejection fraction is 20 % with wall motion abnormalities as noted above. Stage 1 diastolic dysfunction. Mild (1+) mitral valve insufficiency. Mild (1+) aortic valve insufficiency. The study was technically difficult. Ordering Physician: Natalie Dubose Referring Physician: Yogi Gooden; Stevan Hancock Performed By: Meg Alarcon, CLIFTONCS, RVT 09/12/24 1217 Date Yogi Gooden MD CC: Dr. Yogi Gooden MD; Dr. Natalie Dubose MD; Dr. Farshad Hancock MD; Dr. Benjy Best MD Date Dictated: 09/12/24 0757 Date Transcribed: 09/12/24 1217 Internet Marketer: Signed [facility] Emergency Department Summary on 09-11-2024 Emergency Department Summary [facility] Medical Records Department [address] [place] [address] Emergency Department Summary 09/11/24 MR#: [id number] Acct: [id number] Name: MARIO LORENZO Rep #: [id number] : 1935 88 From: Ashleigh Parmar DO PCP: Dr. Farshad Hancock MD Status:ADM IN Location: ICU [id number] HPI History of Present Illness Chief Complaint: Chest Pain Informant: patient Narrative Narrative: Patient is an 88-year-old male with history of hypertension, spinal stenosis and questionable brain aneurysm in his 20s with no known cardiac disease presenting from home for chest pain. He states start about 3 hours prior to arrival. He notes he was helping his son hanging up [place] lights at the time. He describes as a diffuse pain to the center of his chest. Notes he also has some pain in his back and feels a little indigestion. Denies any sweating. Came to the ER for further evaluation. Notes that prior to this he has been feeling well in his normal state of health. Has not been on any of his medications recently. [facility] Medical History Chronic neuropathic pain Spinal stenosis of lumbar region Former tobacco use Brain aneurysm Hypertension Home Medications ???Medication ???Instructions ???Recorded ???Last Taken ???Type amlodipine 2.5 mg tablet 1 tab PO DAILY BP 04/05/14 Unknown History atenolol 50 mg tablet 1 tab PO DAILY blood pressu 04/05/14 Unknown History losartan 100 1 tab PO DAILY BP 04/05/14 Unknown History mg-hydrochlorothiazi de 25 mg tablet sjxdvimn-gou-hjslx acid 0.4 1 ea PO DAILY supplement 04/05/14 Unknown History mg-lycopene 300 mcg-lutein 250 mcg tablet (Centrum Silver) cholecalciferol (vitamin D3) 25 1,000 unit PO DAILY vitamin 07/14/14 Unknown History mcg (1,000 unit) capsule (Vitamin D3) hydrocodone-acetamin ophen 5-325mg 1 - 2 tab PO Q4H PRN PRN Pain ##20 03/15/16 Unknown Rx 5mg-325mg Allergy/AdvReac Type Severity Reaction Status Date / Time hydrochlorothiazide (From AdvReac Other Verified 09/11/24 16:10 Zestoretic) lisinopril (From Zestoretic) AdvReac Other Verified 09/11/24 16:10 Family History Mother Cancer Father Cancer Surgical History Hx of hemorrhoidectomy Social History household members: spouse Smoking Status: Former smoker how long ago did patient quit smoking: Patient smoked 2 ppd from teen until 30 y/o then quit. alcohol intake: never substance use type: does not use ROS ROS ED Constitutional Constitutional ED: Denies chills, fever(s) or sweats Cardiovascular Cardiovascular: Reports as per HPI and chest pain; Denies palpitations or racing heartbeat Respiratory/Chest Respiratory/Chest: Denies cough or dyspnea Gastrointestinal Gastrointestinal: Reports nausea; Denies abdominal pain or vomiting Musculoskeletal Musculoskeletal: Reports back pain; Denies arthralgias or myalgias Neurologic Neurologic: Denies paresthesias or weakness Psychiatric Psychiatric: Denies anxiety Hematologic/Lymphati c Hematologic/Lymphati c: Denies easy bleeding or easy bruising EXAM Physical Exam Const Vital Signs: 09/11/24 16:08 09/11/24 16:14 09/11/24 16:18 Temperature 96.9 F L Temperature Source Temporal Pulse Rate 99 Respiratory Rate 16 Respiratory Effort Normal Non-Labored Blood Pressure 142/92 H 149/105 H Blood Pressure Mean 108 Pulse Ox 100 Oxygen Delivery Method Room Air 09/11/24 16:20 09/11/24 16:30 09/11/24 16:32 Temperature Temperature Source Pulse Rate 102 H Respiratory Rate 107 H Respiratory Effort Blood Pressure 133/92 H Blood Pressure Mean 105 Pulse Ox 98 Oxygen Delivery Method Room Air Room Air 09/11/24 16:35 Temperature 97.8 F Temperature Source Pulse Rate 100 Respiratory Rate 16 Respiratory Effort Blood Pressure 133/90 H Blood Pressure Mean 104 Pulse Ox 98 Oxygen Delivery Method Positive well nourished and well developed General Appearance ED: well developed and NAD HEENT Reports moist mucous membranes Eyes PERRL Neck supple and no JVD Chest Wall inspection of chest normal and palpation of chest normal Resp normal respiratory effort and clear to auscultation bilaterally Cardio regular rate, regular rhythm and no murmurs Peripheral Pulses: radial pulses present bilateral 2+ and dorsalis pedis pulses present bilateral 1+ GI normal to inspection, nondistended, normoactive bowel sounds, soft to palpation and non-tender Palpation: Negative for mass Extremity normal to inspection General Extremety ED: Negative for edema General (more content not included)... [facility] H AND P Exam - Hospitaliston 09-11-2024 H&P Exam - Hospitalist [facility] Medical Records Department [address] [place] [address] H P Exam - Hospitalist 09/11/24 1651 MR#: [id number] Acct: [id number] Name: MARIO LORENZO P Rep #: [id number] : 1935 88 From: Natalie Dubose MD PCP: Dr. Farshad Hancock MD Status:ADM IN Location: ICU [id number] HPI - General General Date of Admission: 09/11/24 Date of Service: 09/11/24 Chief Complaint: Chest pain HPI Narrative The patient is an 88 y/o M w/ PMHx: Brain aneurysm diagnosed in his early 20s of unclear specific type/location/size noted remotely with no intervention, Former tobacco use, 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 Patient denies taking a daily baby aspirin. He notes previous to this he is never had any issues nor any underlying cardiac disease or intervention. Workup in the ED included T96.9 Temporally, heart 99, BP 142/92, respiratory 16, 100% on room air with most recent repeat vital signs T97.8, heart rate 100, BP 133/90, respiratory rate 16, 90% room air, CBC, BMP, coags, troponin, chest x-ray pending upon request evaluation of patient, EKG w/ ST elevation in the precordial as well as lateral leads with reciprocal depressions in the inferior leads with a slightly prolonged QTc at 546 with sinus rhythm with PACs. In the ED patient administered heparin bolus, aspirin and Brilinta load as well as sublingual nitroglycerin x 2 for discomfort followed by fentanyl. Despite these interventions patient noted his chest discomfort increased and rated it 8 out of 10 in severity prior to transition to cardiac catheterization lab. Upon his arrival and EKG review STEMI alert was initiated and Dr. Licea was consulted. [facility] Medical History Chronic neuropathic pain Spinal stenosis of lumbar region Former tobacco use Brain aneurysm Hypertension Home Medications ???Medication ???Instructions ???Recorded ???Last Taken ???Type amlodipine 2.5 mg tablet 1 tab PO DAILY 04/05/14 Unknown History atenolol 50 mg tablet 1 tab PO DAILY 04/05/14 Unknown History losartan 100 1 tab PO DAILY 04/05/14 Unknown History mg-hydrochlorothiazi de 25 mg tablet pzyrvbgs-sfc-jlwnm acid 0.4 1 ea PO DAILY 04/05/14 Unknown History mg-lycopene 300 mcg-lutein 250 mcg tablet (Centrum Silver) cholecalciferol (vitamin D3) 25 1,000 unit PO DAILY 07/14/14 Unknown History mcg (1,000 unit) capsule (Vitamin D3) hydrocodone-acetamin ophen 5-325mg 1 - 2 tab PO Q4H PRN PRN Pain ##20 03/15/16 Unknown Rx 5mg-325mg Allergy/AdvReac Type Severity Reaction Status Date / Time hydrochlorothiazide (From AdvReac Other Verified 09/11/24 16:10 Zestoretic) lisinopril (From Zestoretic) AdvReac Other Verified 09/11/24 16:10 Family History (Updated 09/11/24 @ 17:[address] Natalie Dubose MD) Mother Cancer Father Cancer Surgical History Hx of hemorrhoidectomy Social History (Updated 09/11/24 @ 17:[address] Natalie Dubose MD) household members: spouse Smoking Status: Former smoker how long ago did patient quit smoking: Patient smoked 2 ppd from teen until 30 y/o then quit. alcohol intake: never substance use type: does not use ROS ROS Narrative Admission Review of Systems: CONSTITUTIONAL: No weight loss, fever, chills, + weakness or fatigue. HEENT: Eyes: No visual loss, blurred vision, double vision or yellow sclerae. Ears, Nose, Throat: No hearing loss, sneezing, congestion, runny nose or sore throat. SKIN: No rash or itching, lesions, wounds. CARDIOVASCULAR: + Chest pain. Palpitations, edema, orthopnea, syncopal events. RESPIRATORY: No shortness of breath, cough or sputum, wheezing, hemoptysis. GASTROINTESTINAL: + Mild dyspepsia, nausea. No anorexia, vomiting or diarrhea, abdominal pain, melena, BRBPR. GENITOURINARY: No dysuria, frequency, urgency or retention. NEUROLOGICAL: No headache, dizziness, syncope, paralysis, ataxia, numbness or tingling in the extremities, focal weakness, change in bowel or bladder control, seizure. MUSCULOSKELETAL: + muscle, back pain, joint pain or stiffness. HEMATOLOGIC: No anemia, bleeding or bruising. LYMPHATICS: No enlarged nodes. No history of splenectomy. PSYCHIATRIC: No history of depression or anxiety. ENDOCRINOLOGIC: No reports (more content not included)... [facility] L501.4020on 09-11-2024 TROPONIN-I HS 4258 pg/mL Invalid Interpretation Code 3.0-78.[address] [facility] Comment on above: Order Comment: 'TROP ' Serial specimen #1, #2 or #3: 1 Result Comment: Crit ical Result(s) Called at: 17:13:12 09/11/2024 by: Sylvia Blanco to Anel Fan Results read back by same. Please Note: New Test Units and Gender Specific Reference Ranges. For more information see Policy Stat Procedure [place] High Sensitivity Troponin (TNIH) and attachments. Performed By: #### L 300.3900, L300.4310, L100.0100, L500.2500, L501.4020 ####[facility] [address] [place], [address] MR/QUALITYon 09-11-2024 MR/QUALITY [facility] Medical Records Department [address] [place] [address] Quality Report 09/11/24 1745 MR#: [id number] Acct: [id number] Name: MARIO LORENZO Rep #: [id number] : 1935 88 From: Nikolas Lara PCP: Dr. Farshad Hancock MD Status:ADM IN Y Location: ICU [id number] STEMI STEMI ED Door Time / Other REG STEMI EKG Time (1) ST elevation (STEMI) myocardial infarction: Acute 09/11/24 16:07 Balloon/Aspiration Date-Time Date of Balloon/Aspiration:: 09/11/24 Time of Balloon/Aspiration:: 17:21 09/11/241745 Date Nikolas Lara Cosigner Signature (if applicable): Date CC: Signed [facility] Magnesiumon 09-11-2024 Magnesium [Mass/Vol] 2.2 mg/dL Normal 1.6-2.6 [facility] Comment on above: Order Comment: Comme nts: may add to ED labs Performed By: #### L 501.5204 ####[facility] [address] [place], [address] Partial Thromboplast Timeon 09-11-2024 aPTT Coag (Bld) [Time] 23.5 s Low 24.1-36.2 [facility] Comment on above: Performed By: #### L 300.3900, L300.4310, L100.0100, L500.2500, L501.4020 ####[facility] [address] [place], [place], [address] Prothrombin Time w/INRon INR Coag (PPP) [Relative time] 1.1 {INR} [facility] Comment on above: Performed By: #### L 300.3900, L300.4310, L100.0100, L500.2500, L501.4020 ####[facility] [address] [place], [address] PT Coag (PPP) [Time] 13.8 s Normal 11.7-14.9 [facility] Comment on above: Performed By: #### L 300.3900, L300.4310, L100.0100, L500.2500, L501.4020 ####[facility] [address] [place], [place], [address] Vital Signs Date Time Vital Sign Value Performing Clinician Romana nguyễn 03-19-2025 13:00-0400 Body height 165 cm Lesley Holt DISTRICT LEADER-C Work Phone: [facility] 03-19-2025 13:00-0400 Body mass index (BMI) [Ratio] 21.7 kg/m2 Lesley Holt DISTRICT LEADER-C Work Phone: [facility] 03-19-2025 13:00-0400 Body weight 58.96 kg Lesley Holt DISTRICT LEADER-C Work Phone: [facility] 03-19-2025 13:00-0400 Diastolic blood pressure 87 mm[Hg] Lesley Holt DISTRICT LEADER-C Work Phone: [facility] 03-19-2025 13:00-0400 Heart rate 74 /min Lesley Holt DISTRICT LEADER-C Work Phone: [facility] 03-19-2025 13:00-0400 Respiratory rate 18 /min Lesley Holt DISTRICT LEADER-C Work Phone: [facility] 03-19-2025 13:00-0400 SaO2% (BldA) [Mass fraction] 97 % Lesley Holt DISTRICT LEADER-C Work Phone: [facility] 03-19-2025 13:00-0400 Systolic blood pressure 174 mm[Hg] Lesley Holt DISTRICT LEADER-C Work Phone: [facility] 02-04-2025 07:32-0400 Body height [address] Farshad Hancock MD Work Phone: 7(808)761-164890 [place] [address] 02-04-2025 07:32-0400 Body mass index (BMI) [Ratio] 21.9 kg/m2 Dr. Farshad Hancock MD Work Phone: 9(772)195-819547 [place] [address] 02-04-2025 07:32-0400 Body temperature 98.6 [degF] Dr. Farshad Hancock MD Work Phone: 6(842)567-723947 [place] [address] 02-04-2025 07:32-0400 Body weight 59.[address] Farshad Hancock MD Work Phone: 0(487)795-115947 [place] [address] 02-04-2025 07:32-0400 Diastolic blood pressure 85 mm[Hg] Dr. Farshad Hancock MD Work Phone: 2(653)203-458690 [place] [address] 02-04-2025 07:32-0400 Heart rate 71 /min Dr. Farshad Hancock MD Work Phone: 5(187)398-735390 [place] [address] 02-04-2025 07:32-0400 Respiratory rate 16 /min Dr. Farshad Hancock MD Work Phone: 7(598)541-590690 [place] [address] 02-04-2025 07:32-0400 SaO2% (BldA) [Mass fraction] 100 % Dr. Farshad Hancock MD Work Phone: 0(086)048-435690 [place] [address] 02-04-2025 07:32-0400 Systolic blood pressure 182 mm[Hg] Dr. Farshad Hancock MD Work Phone: 6(392)564-185047 [place] [address] 10-18-2024 09:54-0500 Body mass index (BMI) [Ratio] 21.9 kg/m2 Dr. Farshad Hancock MD Work Phone: [facility] 10-18-2024 09:54-0500 Body weight 59.[address] Farshad Hancock MD Work Phone: [facility] 10-18-2024 09:54-0500 Diastolic blood pressure 84 mm[Hg] Dr. Farshad Hancock MD Work Phone: [facility] 10-18-2024 09:54-0500 Heart rate 80 /min Dr. Farshad Hancock MD Work Phone: [facility] 10-18-2024 09:54-0500 Respiratory rate 16 /min Dr. Farshad Hancock MD Work Phone: [facility] 10-18-2024 09:54-0500 Systolic blood pressure 155 mm[Hg] Dr. Farshad Hancock MD Work Phone: [facility] Encounters Encounter Date Encounter Type Care Provider Facility Start: 03-22-2025 [facility] Facility:[facility] Start: 03-19-2025 End: 03-19-[address] Tavon Peterson MD -[facility] Work Phone: Start: 03-19-2025 End: 03-19-2025 ambulatory [facility] Facility:[facility] Start: 03-08-2025 End: 03-08-2025 ambulatory [facility] DISTRICT LEADER-C Work Phone: [facility] Work Phone: Start: 03-08-2025 End: 03-08-2025 Patient encounter procedure Faheem Huynh DISTRICT LEADER-C -Laboratory Work Phone: Start: 03-08-2025 End: 03-08-2025 [facility] Facility:[facility] Start: 02-04-2025 End: 02-04-2025 Emergency department patient visit Dr. Farshad Hancock MD Work Phone: -Emergency Department Work Phone: Start: 11-27-2024 End: 11-27-2024 ambulatory Meg J Schaefer [facility] Start: 11-27-2024 End: 11-27-2024 Patient encounter procedure Meglubna Schaefer [facility] Comment on above: Population Health Na vigation Outreach ([employer] Unknown PCP/) Start: 10-18-2024 End: 10-18-2024 Patient encounter procedure Faheem Huynh DISTRICT LEADER-C -[facility] Work Phone: Start: 10-18-2024 End: 10-18-2024 ambulatory Faheem Huynh DISTRICT LEADER Facility:[facility] Start: 09-13-2024 End: 09-13-2024 ambulatory Yogi Giacomo Facility:[facility] Start: 09-12-2024 ambulatory Yogi Giacomo Facility:[facility] Start: 09-11-2024 End: 09-13-2024 Evaluation and management of inpatient Yogi Giacomo Facility:[facility] Start: 09-11-2024 ambulatory Yogi Giacomo Facility:[facility] Start: 11-06-2020 End: 11-06-[address] [facility]Immun[facility] Start: 03-19-2014 End: 11-17-2017 Patient encounter procedure Meg Schaefer MA [facility] Start: 03-15-2013 End: 11-17-2017 Patient encounter procedure Meg Schaefer MA [facility] Plan of Treatment Date Care Activity Detail Author Start: 05-17-2028 Urine microalbumin profile DTaP,Tdap,Td Vaccine (4 - Td or Tdap) [facility] Start: 02-04-2025 [facility] Start: 10-17-2024 Advance Directive Discussion Advance Directive Discussion [facility] Start: 06-17-2024 Covid-19 Vaccine ( season) Covid-19 Vaccine ( season) [facility] Start: 06-17-2024 Influenza vaccination Influenza Vacc ine (#1) [facility] Start: 11-14-2022 Diabetes Screening Diabetes Screenin g [facility] Start: 2010 RSV Vaccine (1 - 1-d ose 75+ series) RSV Vaccine (1 - 1-dose 75+ series) [facility] Start: 01-18-1986 Shingrix Vaccine (1 of 2) Christine grix Vaccine (1 of 2) [facility] Start: 1953 Anxiety Screening Anxiety Screening [facility] Start: 1953 Depression Screening Depression Scre cindiing [facility] Hepatic function panel [facility] Lipid 1996 panel - S avni or Plasma [facility] Patient Education ED Skin Tear ( Skin Avulsion) [facility] Work Phone: Patient referral [facility] Work Phone: US Heart limited [facility] Immunizations Immunization Date Immunization Notes Care Provider Fa cility 08-08-2021 influenza (HD-IIV4) vaccine, age 65+ yr, high dose, quadrivalent, PF (FLUZONE HIGH-DOSE) Meg Schaefer MA [facility] 08-08-2021 influenza virus vacc ine, unspecified formulation Meg Schaefer MA [facility] 12-04-2020 Covid (Moderna) [facility] 11-06-2020 Covid (Moderna) [facility] 07-16-2019 influenza, high dose seasonal, preservative-free Meg Schaefer MA [facility] 06-27-2017 influenza, high dose seasonal, preservative-free Meg Schaefer MA [facility] 05-17-2017 pneumococcal polysaccharide vaccine, 23 valent Meg Schaefer MA [facility] 03-31-2015 pneumococcal conjuga te vaccine, 13 valent Meg Schaefer MA [facility] 08-10-2014 influenza, seasonal, injectable Meg Schaefer MA [facility] 07-28-2013 influenza virus vacc ine, unspecified formulation Meg Schaefer MA [facility] 07-12-2012 influenza virus vacc ine, unspecified formulation Meg Schaefer MA [facility] 11-07-2006 diphtheria and tetan us toxoids, adsorbed for pediatric use Meg Schaefer MA [facility] 08-15-2006 influenza virus vacc ine, unspecified formulation Meg Schaefer [facility] Work Phone: 07-20-2000 pneumococcal polysaccharide vaccine, 23 valent Meg Schaefer MA [facility] 02-26-1993 diphtheria and tetan us toxoids, adsorbed for pediatric use Meg Schaefer MA [facility] Payers Date Payer Category Payer Medicare [id number] 2024 Self-pay [id number] 2021 Medicare (Managed Care) [employer] MEDICARE [id number] 2000 Medicare SELF PAY INSURANCE [id number] Unknown [id number] Unknown [id number] 2 Unknown [id number] [id number] 2 Unknown [id number] [id number] 2 Unknown [id number] [id number] 2 Unknown [id number] [id number] 2 Unknown [id number] [id number] 2 Unknown [id number] [id number] 2 Unknown [id number] [id number] 2 Unknown [id number] [id number] 2 Unknown [id number] [id number] 2 Unknown [id number] [id number] 2 Unknown [id number] [id number] 2 Unknown [id number] [id number] 2 Social History Date Type Detail Facility Start: 03-15-2016 [facility] Work Phone: Start: 1935 Sex Assigned At Male [facility] Start: 11-17-2017 [facility] Never smoked tobacco [facility] Start: 11-17-2017 Tobacco use and exposure Smokeless tobacco non-user [facility] Start: 11-23-2019 Alcoholic beverage intake Current non-drinker of alcohol (finding) [facility] Start: 11-23-2019 End: 09-23-2020 History of Social function [facility] Start: 11-23-2019 End: 09-23-2020 Tobacco use panel [facility] Adult Depression Screening Assessment [address] [facility] Start: 1935 Sex assigned at Not on file [facility] Start: 02-04-2025 [facility] Start: 02-04-2025 Sex Male (finding) [facility] Medical Equipment Procedure Code Equipment Code Equipment Origin al Text Equipment Identifier Dates Drug-eluting coronary artery stent, [id number]-te lymer-coated ()[id number] FDA Start: 09-11-2024 Goals Date Patient Goal Desired Activity /State Functional Status Date Assessment Result Facility 03-31-2015 Are you deaf, or do you have serious difficulty hearing No 03/31/2015 3:17 PM Yanci Vigil, RN No [facility] 03-31-2015 Are you blind, or do you have serious difficulty seeing, even when wearing glasses No 03/31/2015 3:17 PM Yanci Vigil ANNETTA No [facility] 03-31-2015 Do you have serious difficulty walking or climbing stairs No 03/31/2015 3:17 PM PHYLLIST Yanci Garza, ANNETTA No [facility] 03-31-2015 Do you have difficul ty dressing or bathing No 03/31/2015 3:17 PM EDT Yanci Garza RN No [facility] 03-31-2015 Because of a physica l, mental, or emotional condition, do you have difficulty doing errands alone such as visiting a physician's office or shopping No 03/31/2015 3:17 PM EDT Yanci Garza, RN No [facility] Mental Status Date Assessment Result Facility 03-31-2015 Because of a physica l, mental, or emotional condition, do you have serious difficulty concentrating, remembering, or making decisions No 03/31/2015 3:17 PM Yanci Vigil RN No [facility] Clinical Notes 09-11-2024 to 02-09-2025 Meg Schaefer MA - 11/27/2024 2:56 PM EST Note Date & Type Note Facility 02-09-2025 Note HNO ID: [id number] Author: ANNALISE SHEPHERD MA Service: ? Author Type: Motor Adjuster Type: Progress Notes Filed: 02/09/2025 08:30 Note Text: POPULATION HEALTH NAVIGATION OUTREACH Action/FYI No OV with [facility] since 05/22/2020 Signed LAURA received and in scanned documents PCP updated per Care Everywhere - Lesley Holt CNP Reason for Outreach Community Monitoring/Network Navigator Pools AND Phone Line: CM Pool Care Gaps due: Medicare Annual Wellness Visit Follow-up Appointment Patient Contacted: Unable or unnecessary to reach patient: PCP field updated Outside PCP Navigation Signature: Annalise Slater MA February 09, 2025 8:21 AM [facility] 02-07-2025 Note HNO ID: [id number] Author: ANTIONETTE GIRON MA Service: ? Author Type: Motor Adjuster Type: Progress Notes Filed: 02/07/2025 11:46 Note Text: POPULATION HEALTH NAVIGATION OUTREACH Action/FYI CM Pool Message: Type: AC ED Follow up [facility] 02/04/25 Skin Tear Last office visit 05/22/20. Wellness Visit Patient sees primary care at [facility]. Release signed by patient on 09/20/24 and scanned. Outcome: 1st attempt. Left message on voice mail to call back to confirm PCP. eBuddyhart message sent. Reason for Outreach Community Monitoring/Network Navigator Pools AND Phone Line: Pool Care Gaps due: Medicare Annual Wellness Visit Follow-up Appointment Patient Contacted: Unable or unnecessary to reach patient: Left message eBuddyhart message sent Navigation Signature: Antionette Giron MA February 07, 2025 11:27 AM [facility] 02-07-2025 Note HNO ID: [id number] Author: MYA CASTRO RN Service: ? Author Type: Registered Nurse Type: Progress Notes Filed: 02/07/2025 11:15 Note Text: Summary: Chart review per payor request. ACM BESS RN Patient identified by name and date of . Reason for review or outreach: Chart Review Bess Priority Emergency Department Utilization REQUESTED ACTION/FYI: Please see ED Utilization summary below We are forwarding this patient to Network Navigation to schedule a 02/04/2025 [facility] PCP follow-up appointment. Thank you! ED DIAGNOSES/REASON(S) FOR ED USE: [place] 02/04/2025 ER Chief complaint: skin tear/wound check ... HPI states he was washing his face and scrubbed off some skin on the top of his nose and his right ear began bleeding. No other complaints. OTHER FINDINGS/SUMMARY: ER placed Dermabond on both wounds and bleeding stopped. Was instructed on wound care. Patient Attributed To: Incorrect attribution QAE Payer: Maritza YANEZ Action Taken: Referrals/Routed: Population Health Navigation: Appointment. Router to [facility] WishLink [[phone]] Contact made with patient: No, Chart review only. Signature: Mya Castro RN [facility] 02-07-2025 Note Patient Outreach ([facility] MARIO LORENZO ([id number]) 1935 M Date Time Provider Department 02/07/25 MYA CASTRO [facility] During your visit today, we recorded the following information about you: Mya Castro RN 02/07/2025 11:15 AM Signed [facility] BESS RN Patient identified by name and date of . Reason for review or outreach: Chart Review Bess Priority Emergency Department Utilization REQUESTED ACTION/FYI: Please see ED Utilization summary below We are forwarding this patient to Network Navigation to schedule a 02/04/2025 [facility] PCP follow-up appointment. Thank you! ED DIAGNOSES/REASON(S) FOR ED USE: [facility] 02/04/2025 ER Chief complaint: skin tear/wound check ... HPI states he was washing his face and scrubbed off some skin on the top of his nose and his right ear began bleeding. No other complaints. OTHER FINDINGS/SUMMARY: ER placed Dermabond on both wounds and bleeding stopped. Was instructed on wound care. Patient Attributed To: Incorrect attribution QAE Payer: Maritza YANEZ Action Taken: Referrals/Routed: Population Health Navigation: Appointment. Router to [facility]Link [[phone]] Contact made with patient: No, Chart review only. Signature: ANNETTA Rocha Lisa L, MA 02/07/2025 11:46 AM Signed POPULATION HEALTH NAVIGATION OUTREACH Action/FYI [facility] Message: Type: ACM ED Follow up [facility] 02/04/25 Skin Tear Last office visit 05/22/20. Wellness Visit Patient sees primary care at [facility]. Release signed by patient on 09/20/24 and scanned. Outcome: 1st attempt. Left message on voice mail to call back to confirm PCP. MyChart message sent. Reason for Outreach Community Monitoring/Network Navigator Pools AND Phone Line: CM Pool Care Gaps due: Medicare Annual Wellness Visit Follow-up Appointment Patient Contacted: Unable or unnecessary to reach patient: Left message MyChart message sent Navigation Signature: Antionette Giron MA February 07, 2025 11:27 AM Annalise Shepherd MA 02/09/2025 8:30 AM Signed POPULATION HEALTH NAVIGATION OUTREACH Action/FYI No OV with [facility] since 05/22/2020 Signed LAURA received and in scanned documents PCP updated per Care Everywhere - Lesley Holt CNP Reason for Outreach Community Monitoring/Network Navigator Pools AND Phone Line: CM Pool Care Gaps due: Medicare Annual Wellness Visit Follow-up Appointment Patient Contacted: Unable or unnecessary to reach patient: PCP field updated Outside PCP Navigation Signature: Annalise Slater MA February 09, 2025 8:21 AM Allergies As of Date: 02/07/2025 Noted Allergy Reaction LISINOPRIL 09/01/2010 3 - Cough Date Reviewed: 11/23/2019 Reviewed by: Estefani Hutchins (Narcisa) - Fully Assessed Reason for Visit: ACM BESS RN [[id number]] Cmt: Chart review per payor request. Prescriptions as of 02/09/2025 - losartan-hydroCHLOROthiazide (HYZAAR) 100-25 mg per tablet Take 1 tablet by mouth once daily. - atenolol (TENORMIN) 50 mg tablet Take 1 tablet by mouth once daily. - finasteride (PROSCAR) 5 mg tablet Take 1 tablet by mouth once daily. - Zyfznbivnuimn-Jvpshpvk-Yxhbas (CENTRUM SILVER) Tab Take 1 tablet by mouth once daily. - CHOLECALCIFEROL (VITAMIN D3) 1,000 UNIT CAP Take one(1) tablet daily. Problem List As Of Date 02/07/2025 Noted Resolved HEMORRHOIDS NOS [K64.9] SUBARACHNOID HEMORRHAGE [I60.9] Other hyperlipidemia [E78.49] PERS HX COLONIC POLYPS [Z86.0100] FAMILY HX GI MALIGNANCY [Z80.0] Essential hypertension [I10] 07/12/2006 Benign localized hyperplasia of prostate with u*03/15/2012 05/22/2016 Medicare annual wellness visit, subsequent [Z00*03/19/2014 11/17/2017 Medicare annual wellness visit, initial [Z00.00]03/15/2013 11/17/2017 Spinal stenosis, lumbar region, without neuroge*04/13/2016 05/22/2016 Benign prostatic hyperplasia with urinary obstr*05/22/2016 Elevated prostate specific antigen (PSA) [R97.2*05/22/2016 Spinal stenosis, lumbar region, with neurogenic*05/22/2016 White coat syndrome with diagnosis of hypertens* Encounter Status:Closed by MYA CASTRO on 02/07/25 [facility] 02-04-[address] [facility] 11-27-2024 Note HNO ID: [id number] Author: MEG SCHAEFER MA Service: ? Author Type: Motor Adjuster Type: Progress Notes Filed: 11/27/2024 15:01 Note Text: POPULATION HEALTH NAVIGATION OUTREACH Action/FYI Upon reviewing the patient's chart, it was found that there was a medical release scanned into his chart on 10/10/2024. Patient will be receiving primary care at [facility]. PCP field updated. Reason for Outreach Attribution: Unknown PCP Report Care Gaps due: N/A Patient Contacted: Unable or unnecessary to reach patient: PCP field updated Outside PCP Navigation Signature: Meg Schaefer MA November 27, 2024 2:56 PM [facility] 11-27-2024 History of Present illness Narrative POPULATION HEALTH NAVIGATION OUTREACH Action/FYI Upon reviewing the patient's chart, it was found that there was a medical release scanned into his chart on 10/10/2024. Patient will be receiving primary care at [facility]. PCP field updated. Reason for Outreach Attribution: Unknown PCP Report Care Gaps due: N/A Patient Contacted: Unable or unnecessary to reach patient: PCP field updated Outside PCP Navigation Signature: Meg Schaefer MA November 27, 2024 2:56 PM documented in this encounter [facility] 11-27-2024 Note Patient Outreach (DARRELL TNDANIEL) KADEMARIO ([id number]) 1935 M Date Time Provider Department 11/27/24 MEG SCHAEFERV During your visit today, we recorded the following information about you: Meg Schaefer MA 11/27/2024 3:01 PM Signed POPULATION HEALTH NAVIGATION OUTREACH Action/FYI Upon reviewing the patient's chart, it was found that there was a medical release scanned into his chart on 10/10/2024. Patient will be receiving primary care at [facility]. PCP field updated. Reason for Outreach Attribution: Unknown PCP Report Care Gaps due: N/A Patient Contacted: Unable or unnecessary to reach patient: PCP field updated Outside PCP Navigation Signature: Meg Schaefer MA November 27, 2024 2:56 PM Allergies As of Date: 11/27/2024 Noted Allergy Reaction LISINOPRIL 09/01/2010 3 - Cough Date Reviewed: 11/23/2019 Reviewed by: Estefani Hutchins ([facility]) - Fully Assessed Reason for Visit: Population Health Navigation Outreach [[id number]] Cmt: [employer] Unknown PCP Prescriptions as of 11/27/2024 - losartan-hydroCHLOROthiazide (HYZAAR) 100-25 mg per tablet Take 1 tablet by mouth once daily. - atenolol (TENORMIN) 50 mg tablet Take 1 tablet by mouth once daily. - finasteride (PROSCAR) 5 mg tablet Take 1 tablet by mouth once daily. - Slslxmikqlkwh-Znfyspph-Ruyrzl (CENTRUM SILVER) Tab Take 1 tablet by mouth once daily. - CHOLECALCIFEROL (VITAMIN D3) 1,000 UNIT CAP Take one(1) tablet daily. Problem List As Of Date 11/27/2024 Noted Resolved HEMORRHOIDS NOS [K64.9] SUBARACHNOID HEMORRHAGE [I60.9] Other hyperlipidemia [E78.49] PERS HX COLONIC POLYPS [Z86.0100] FAMILY HX GI MALIGNANCY [Z80.0] Essential hypertension [I10] 07/12/2006 Benign localized hyperplasia of prostate with u*03/15/2012 05/22/2016 Medicare annual wellness visit, subsequent [Z00*03/19/2014 11/17/2017 Medicare annual wellness visit, initial [Z00.00]03/15/2013 11/17/2017 Spinal stenosis, lumbar region, without neuroge*04/13/2016 05/22/2016 Benign prostatic hyperplasia with urinary obstr*05/22/2016 Elevated prostate specific antigen (PSA) [R97.2*05/22/2016 Spinal stenosis, lumbar region, with neurogenic*05/22/2016 White coat syndrome with diagnosis of hypertens* Encounter Status:Closed by MEG SCHAEFER on 11/27/24 [facility] 09-13-2024 Note [facility] Medical Records Department [address] [place] [address] Discharge Summary 09/13/24 1555 MR#: [id number] Acct: [id number] Name: MARIO LOREZNO Rep #: [id number] : 1935 88 From: Benjy Best MD PCP: Dr. Farshad Hancock MD Status:DIS IN Location: ICU [id number] Providers Date of Admission: 09/11/24 Primary Care Physician: Dr. Farshad Hancock MD Consultations 09/11/24 18:13 Consult: Cardiology Routine Consulting Provider: Jacob Licea Reason for Consult: Chest Pain, STEMI EMERGENT Consult: Yes MD Notified: Yes Date Notified: 09/11/24 Time Notified: 17:03 Method of Notification: ED Physician Initiated Reason For Visit: STEMI Diagnosis Discharge Diagnosis (1) ST elevation (STEMI) myocardial infarction: Status: Acute Code(s): I21.3 - ST elevation (STEMI) myocardial infarction of unspecified site Qualifiers: Involved coronary artery: LAD coronary artery Qualified Code(s): I21.02 - ST elevation (STEMI) myocardial infarction involving left anterior descending coronary artery (2) Chest pain: Status: Acute Code(s): R07.9 - Chest pain, unspecified Medications at Discharge Home Medications aspirin 81 mg tablet,delayed release 81 mg PO BREAKFAST 30 days #30 tabs 11/28/24 atorvastatin 40 mg tablet 40 mg PO QHS 30 days #30 tabs 09/13/24 carvedilol 3.125 mg tablet 3.125 mg PO BID 30 days #60 tabs 09/13/24 clopidogrel 75 mg tablet 75 mg PO DAILY 30 days #30 tabs 09/13/24 empagliflozin 10 mg tablet (Jardiance) 10 mg PO DAILY 30 days #30 tabs 09/13/24 furosemide 40 mg tablet 40 mg PO DAILY 30 days #30 tabs 09/13/24 losartan 25 mg tablet 25 mg PO DAILY 30 days #30 tabs 09/13/24 spironolactone 25 mg tablet 12.5 mg (1/2 x 25 mg) PO DAILY 30 days #15 tabs 09/13/24 Hospital Course Operations None Procedures 2-D Echocardiogram and Cardiac catheterization Summary of Care Provided Minutes Spent on Discharge: 37 Hospital Course: Per HPI: The patient is an 88 y/o M w/ PMHx: Brain aneurysm diagnosed in his early 20s of unclear specific type/location/size noted remotely with no intervention, Former tobacco use, 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 Patient denies taking a daily baby aspirin. He notes previous to this he is never had any issues nor any underlying cardiac disease or intervention. Workup in the ED included T96.9 Temporally, heart 99, BP 142/92, respiratory 16, 100% on room air with most recent repeat vital signs T97.8, heart rate 100, BP 133/90, respiratory rate 16, 90% room air, CBC, BMP, coags, troponin, chest x-ray pending upon request evaluation of patient, EKG w/ ST elevation in the precordial as well as lateral leads with reciprocal depressions in the inferior leads with a slightly prolonged QTc at 546 with sinus rhythm with PACs. In the ED patient administered heparin bolus, aspirin and Brilinta load as well as sublingual nitroglycerin x 2 for discomfort followed by fentanyl. Despite these interventions patient noted his chest discomfort increased and rated it 8 out of 10 in severity prior to transition to cardiac catheterization lab. Upon his arrival and EKG review STEMI alert was initiated and Dr. Licea was consulted. Hospital Course: 1. STEMI/essential HTN/ischemic cardiomyopathy with reduced EF no active heart failure at this time???88-year-old male presented to the hospital with midsternal chest pain. He was found to have a STEMI and was taken to the Acute Dialysis Nurse where he had a drug-eluting stent placed to pD-1. He was started on multiple different medications that he was encouraged to take for at least a year as he has been resistant to take medications in the past. He was placed on aspirin and Plavix as well as started on Lasix, losartan, spironolactone, Jardiance, Coreg, and Lipitor. He will need to follow- up with his PCP as well as cardiology as an outpatient for medication adjustments and monitoring. I discussed with him the need to obtain lab work in 3 to 5 days from his PCP to monitor his kidney function. He did have an echo during this hospitalization which demonstrated an EF of 20% and stage I diastolic dysfunction, he has not been showing any signs of heart failure at this time. I discussed with him the plan for discharge today he expressed understanding there is benefits going home and would like to go home to (more content not included)... [facility] 09-11-2024 Evaluation note Diagnosis Onset Date Resolution Cardiac LV ejection fraction 10-20% September 11, 2024 acute October 18, 2024 9:42am Hyperlipidemia chronic October 9:42am Hypertension chronic October 18, 2024 9:42am Stented coronary artery September 11, 2024 chronic October 18, 2024 9:42am [facility] Work Phone: Discharge summary Author Jovany Wellington [facility] Note Date/Time February 04, 2025 8:[address] [facility] Medical Records Department [address] [place] [address] Emergency Department Summary 02/04/25 MR#: [id number] Acct: [id number] Name: MARIO LORENZO Rep #:[id number] : 1935 89 From: Jovany Wellington MD PCP: SHANIQUA Zheng Status:REG ER Location: ED HPI History of Present Illness Chief Complaint: Wound Check Informant: patient Onset/Context/Timing Onset: Today Context: Gradual Onset Timing: Continuous Current Severity: Mild Maximum Severity: Mild Narrative Narrative: 89-year-old male history of CAD with stent and hypertension. He is on aspirin and Plavix. He was washing his face today accidentally scrubbed off some skin on the top of his nose and his right ear and began bleeding. No other complaints. This occurred about an hour ago. Bleeding was not stopping so he came in the emergency department. Prior similar symptoms: Yes Recent Illness/Hospitalization: No [facility] Medical History Cardiac LV ejection fraction 10-20% (09/11/24) Arteriosclerotic coronary artery disease Chronic neuropathic pain Spinal stenosis of lumbar region Former tobacco use Brain aneurysm Hypertension Home Medications ?Medication ?Instructions ?Recorded ?Last Taken ?Type Handicap Parking Placard #2 ea 10/22/24 Unknown Rx aspirin 81 mg tablet,delayed 81 mg PO BREAKFAST awaiti ng mail 12/05/24 Unknown Rx release order RX #30 tabs atorvastatin 40 mg tablet 40 mg PO QHS awaiting mail i n RX 12/05/24 Unknown Rx #30 tabs carvedilol 3.125 mg tablet 3.125 mg PO BID awaiting ma il in 12/05/24 Unknown Rx RX #60 tabs clopidogrel 75 mg tablet 75 mg PO DAILY awaiting mail order 12/05/24 Unknown Rx RX #30 tabs empagliflozin 10 mg tablet 10 mg PO DAILY awaiting stephanie l order 12/05/24 Unknown Rx (Jardiance) RX #30 tabs furosemide 40 mg tablet 40 mg PO DAILY awaiting mail order 12/05/24 Unknown Rx RX #30 tabs losartan 25 mg tablet 25 mg PO DAILY awaiting mail order 12/05/24 Unknown Rx RX #30 tabs spironolactone 25 mg tablet 12.5 mg (1/2 x 25 mg) PO D AILY 12/05/24 Unknown Rx awaiting mail order RX #15 tabs Allergy/AdvReac Type Severity Reaction Status Date / Time hydrochlorothiazide (From AdvReac Other Verified 10/18/24 10:04 Zestoretic) lisinopril (From Zestoretic) AdvReac Other Verified 10/18/24 10:04 Family History Mother Cancer Father Cancer Surgical History Stented coronary artery (09/11/24) Hx of hemorrhoidectomy Social History household members: spouse Smoking Status: Former smoker how long ago did patient quit smoking: Patient smoked 2 ppd from teen until 30 y/o then quit. alcohol intake: never substance use type: does not use caffeine: No ROS ROS ED ROS Narrative Denies recent illness. Constitutional Constitutional ED: Denies chills or fever(s) Eyes Eyes: Denies blurry vision ENT ENT ED: Denies ear pain Cardiovascular Cardiovascular: Denies chest pain Respiratory/Chest Respiratory/Chest: Denies cough or dyspnea Gastrointestinal Gastrointestinal: Denies abdominal pain Genitourinary Genitourinary ED: Denies dysuria or hematuria Musculoskeletal Musculoskeletal: Denies arthralgias Integumentary Denies abscess Neurologic Neurologic: Denies headache(s) Psychiatric Psychiatric: Denies anxiety or depression Endocrine Endocrinology: Denies cold intolerance Hematologic/Lymphatic Hematologic/Lymphatic: Denies easy bruising Allergic/Immunologic Allergic/Immunologic ED: Denies mouth swelling EXAM Physical Exam Narrative Exam Narrative: 89-year-old male sitting upright in a chair. Vital signs are stable and afebrile. Accompanied by his daughter. He is in no acute distress. Oozing from the skin on the top of the nose and his right earlobe. Pupils round reactive light. Neck nontender no lymphadenopathy. Lungs are clear equal symmetrical. Heart regular rhythm rate about 70 no murmur. Chest wall ribs nontender. Abdomen soft nontender. Moving all 4 extremities. Nontender no edema. Neurologically is awake alert. Answering questions following commands. No focal motor deficits. Const Vital Signs: 02/04/25 07:32 Temperature 98.6 F Temperature Source Oral Pulse Rate 71 Respiratory Rate 16 Blood Pressure 182/85 H Blood Pressure Mean 117 Pulse Ox 100 Oxygen Delivery Method Room Air Positive well nourished and well developed; Negative for obese, cachectic, contractures or unkempt General Appearance ED: well developed and NAD; Negative for unkempt, cachectic, contractures, cyanotic, diaphoretic or pallor Nutritional Appearance: Negative for cachectic or obese HEENT Reports moist mucous membranes Negative for trauma or tenderness Eyes PERRL and EOMs intact bilaterally Neck no lymphadenopathy, supple and no JVD Chest Wall inspection of chest normal and palpation of chest normal Resp normal respiratory effort and clear to auscultation bilaterally Effort and Inspection: Negative for retractions Auscultation: Negative for rales, rhonchi or wheezes Cardio regular rate, regular rhythm, S1 normal heart sound, S2 normal heart sound and no murmurs GI normal to inspection, nondistended, normoactive bowel sounds, non-tender, non-distended and no masses Palpation: soft; Negative for tender, guarding or rebound tenderness present Back/Spine no CVA tenderness General Back: Negative for CVA tenderness Cervical Spine: Negative for cervical spine tenderness Thoracic Spine / Upper Back: Negative for thoracic spinal tenderness Extremity normal to inspection General Extremety ED: Negative for edema or tenderness General Extremity: Negative for edema Neuro CN's II-XII intact bilaterally Sensorium / Orientation: alert; Negative for orientation impaired Motor Exam: strength 5/5 throughout Psych Appearance: Negative for unkempt Skin no rashes or lesions noted, No no wounds and skin turgor normal Skin Narrative: Skin tear of the bridge of his nose. Oozing. Small wound right lower earlobe. Currently not bleeding. General Skin Exam: Negative for pallor Lesions: No lesion noted Rashes: No rashes noted MDM MDM MDM Narrative Medical decision making narrative: 89-year-old male has a wound on his nose and right ear lobe that were bleeding due to him being on Plavix and aspirin. Otherwise exam benign. I placed Dermabond on both wounds bleeding stopped. He was instructed on wound care. Discharge Plan Triage Chief Complaint: Wound Check ED Provider: Jovany Wellington Dx/Rx/DC Orders Clinical Impression: Skin tear Instructions: ED Skin Tear (Skin Avulsion) Prescriptions: No Action (DME) Handicap Parking Placard See Rx Instructions .Route .MEDSUPPLY Qty: 2 0RF Rx Instructions: As directed atorvastatin 40 mg tablet 40 mg PO QHS Qty: 30 0RF carvedilol 3.125 mg tablet 3.125 mg PO BID Qty: 60 0RF clopidogrel 75 mg tablet 75 mg PO DAILY Qty: 30 0RF Jardiance 10 mg tablet 10 mg PO DAILY Qty: 30 0RF furosemide 40 mg tablet 40 mg PO DAILY Qty: 30 0RF losartan 25 mg tablet 25 mg PO DAILY Qty: 30 0RF spironolactone 25 mg tablet 12.5 mg PO DAILY Qty: 15 0RF aspirin 81 mg tablet,delayed release (DR/EC) 81 mg PO BREAKFAST Qty: 30 0RF Primary Care Provider: Lesley Holt Referrals: Lesley Holt, SHANIQUA [Primary Care Provider] - As Needed Activity Restrictions/Additional Instructions: General Washes area for at least a week. Because you might pull off the clot and the glue I will restart bleeding. If it begins bleeding again just hold direct pressure for 30 minutes if unable to stop return. Print Language: Amharic Disposition Disposition: Home, Self Care What to do if you have Problems For any increased pain, shortness of breath, bleeding, nausea or vomiting, chestpain, or any unexpected problems, contact your Primary Care Provider. Call [facility] ([phone]) or report to the closest Emergency Room. Call 911 if necessary. 02/04/25 0800 <Electronically signed by Jovany Wellington MD> Cosigner Signature (if applicable): CC: SHANIQUA Holt ~ Signed [facility] Work Phone: Evaluation noteNo assessment information available [facility] Work Phone: Hospital Discharge instructions Additional Instructions General Washes area for at least a week. Because you might pull off the clot and the glue I will restart bleeding. If it begins bleeding again just hold direct pressure for 30 minutes if unable to stop return.[facility] Work Phone: Reason for referral (narrative)No reason for referral information availableWUniversity [facility]als [facility] Work Phone: Chief Complaint and Reason for Visit Chief Complaint MODERNA VACCINE Chief Complaint Admit Date S/P [facility] 09/13October 18, 2024 9: 42am wound check February 04, 2025 7:3 1am Reason for Visit Admit Date Cardiac LV ejection fraction 10-20% 2024 9:42am Hyperlipidemia October 18, 2024 9: 42am Hypertension October 18, 2024 9: 42am Stented coronary artery October 18 9:42am Chief Complaint Admit Date wound check February 04, 2025 7:3 1am INT LABS March 08, 2025 9:25a m Chief Complaint Admit Date wound check February 04, 2025 7:3 1am INT LABS March 08, 2025 9:25a m 6 M FU March 19, 2025 12:50 pm Advance Directives Advance Directive Response Recorded Date/ Time Living Will Yes March 15, 2016 5 :56pm Power of Balloon Tester Yes March 15, 2016 5:56pm Documents on File Type Date Recorded Patient District Or District Office Director Expl anation Advance Directive(s) 11/17/2011 Advance Directive(s) 06/12/2008 Advance Directive Response Recorded Date/ Time Living Will Yes February 04, 2025 8:13am Do you have a Healthcare Power of Balloon Tester? Yes February 04, 2025 8:13am Name of Medical Power of Balloon Tester Reyes Lorenzo February 04, 2025 8:13am Assessments No Assessments Information Available Family History Relationship Condition Age at Onset Recorded Date/T gemma mother Malignant neoplasm Unknown father Malignant neoplasm Unknown Summary Purpose Additional Source Comments Source Comments (unrecognize d section and content) In the event this informatio n is protected by the Federal Confidentiality of Alcohol and Drug Abuse Patient Records regulations: The Federal rules restrict any use of the information to criminally investigate or prosecute any alcohol or drug abuse patient.[facility] Care Teams (unrecognized sec tion and content) [employer] Relationship Specialty Start Date End Date [facility] PCP - General 11/27/24 Team Status: Active Member Role Status Dates SHANIQUA Zheng Primary Care Provider Active Team Status: Inactive Member Role Status Dates Dr. Farshad Hancock MD Referring Provider Active Start: October 18, 2024 End: October 18, 2024 Faheem Huynh NP, DISTRICT LEADER-C Attending Provider Active S tart: October 18, 2024 End: October 18, 2024 DENNISE ZhengC Primary Care Provider Active Start: October 18, 2024 End: October 18, 2024 Team Status: Inactive Member Role Status Dates SHANIQUA Zheng Primary Care Provider Active Start: February 04, 2025 End: February 04, 2025 Dr. Jovany Wellington MD Emergency Provider Active S tart: February 04, 2025 End: February 04, 2025 Team Status: Inactive Member Role Status Dates SHANIQUA Zheng Primary Care Provider Active Start: February 04, 2025 End: February 04, 2025 Dr. Jovany Wellington MD Attending Provider Active S tart: February 04, 2025 End: February 04, 2025 Dr. Jovany Wellington MD Emergency Provider Active S tart: February 04, 2025 End: February 04, 2025 Team Status: Inactive Member Role Status Dates Lesley Holt NP-C Primary Care Provider Active Start: March 08, 2025 End: March 08, 2025 Faheem Huynh DISTRICT LEADER, DISTRICT LEADER-C Attending Provider Active S tart: March 08, 2025 End: March 08, 2025 Faheem Huynh DISTRICT LEADER, DISTRICT LEADER-C Referring Provider Active S tart: March 08, 2025 End: March 08, 2025 Team Status: Inactive Member Role Status Dates Lesley Holt NP-[place] Primary Care Provider Active Start: March 19, 2025 End: March 19, 2025 Lesley Holt NP-[place] Referring Provider Active St art: March 19, 2025 End: March 19, 2025 Dr. Tavon Peterson MD Attending Provider Active Start: March 19, 2025 End: March 19, 2025 Goals (unrecognized section and content) Goals may be documented in a n alternate sectionGoals may be documented in an alternate sectionGoals may be documented in an alternate section (unrecognized sect ion and content) No Status Records FoundNo Status Records Found INFORMATION SOURCE (unrecogn ized section and content) DATE CREATED AUTHOR 02/10/2025 [facility] DATE CREATED AUTHOR 'Zaina SNYDER 03/23/2025 [facility] FOR RECORDS PERTAINING TO PATIENTS WHO ARE OR HAVE BEEN ENROLLED IN A CHEMICAL DEPENDENCY/SUBSTANCEABUSE PROGRAM, SOME INFORMATION MAY BE OMITTED. This clinical summary was aggregated from multiple sources. Caution should be exercised in using it in the provision of clinical care. This summary normalizes information from multiple sources, and as a consequence, information in this document may materially change the coding, format and clinical context of patient data. In addition, data may be omitted in some cases. CLINICAL DECISIONS SHOULD BE BASED ON THE PRIMARY CLINICAL RECORDS. [employer] [facility]. provides no warranty or guarantee of the accuracy or completeness of information in this document.
== END | disposition home or self-care (01) ==
LOC: BFHLAB 12:25
PROVIDERS: PCP Nurse Practitioner Family; Visit Provider Nurse Practitioner Family
DX: I11.0 Hypertensive heart disease with heart failure (principal); I50.9 Heart failure, unspecified
CPT/HCPCS: 36415; 80048

== ENCOUNTER → 2025-09-11 | Outpatient (CLI) | payer MEDICARE, SELFPAY ==
[2025-09-11 13:09] LABS: AST(SGOT) 33 U/L (<=37); Alanine Aminotransfer ALT/SGPT 35 U/L (<=46); Albumin, Serum 4.2 g/dL (3.4-4.8); Alkaline Phosphatase 90 U/L (40-129); Bilirubin, Direct 0.41 mg/dL (0.00-0.30); Cholesterol 122 mg/dL (<=200); Globulin 3.0 g/dL (2.2-4.2); Low Density Lipoprotein Calc. 59 mg/dL; Triglycerides 78 mg/dL; Very Low Density Lipoprotein 16 mg/dL (5-40); cholesterol:hdl ratio screen 2.55
== END | disposition home or self-care (01) ==
LOC: LAB 09:23
PROVIDERS: PCP Nurse Practitioner Family; Referring Provider Nurse Practitioner Family; Visit Provider Nurse Practitioner Family
DX: E78.00 Pure hypercholesterolemia, unspecified (principal)
CPT/HCPCS: 36415; 80061; 80076